=== PATIENT | female | born 1930 | race Caucasian/White ===

== ENCOUNTER 2016-06-02 12:50 | Inpatient (IN) | payer OTHER, MEDICAID ==
[~2016-06-02] VITALS: Ht 160 cm; Wt 61.7 kg
--- NOTE | 2016-06-02 13:10 | NUR ---
BIB PA FOR DANGER TO OTHERS AND SELF, AGGRESSIVE BEHAVIOR AT FACILITY. NOTED DEPRESSED, CRYING, SLIGHTLY AGITATED, COOPERATIVE. VSS. SEEN BY MD FOR EVAL. SAFETY AND COMFORT MEASURES PROVIDED. WILL MONITOR.
[2016-06-02 13:19] LABS: BASOPHILS % (AUTO) 0.4 % (0.0-2.0); EOSINOPHILS # (AUTO) 0.1 /CMM (0.0-0.7); EOSINOPHILS % (AUTO) 2.5 % (0.0-6.0); HEMATOCRIT 39 % (33-45); HEMOGLOBIN 13.5 g/dL (11.5-14.8); LYMPHOCYTES # (AUTO) 2.1 /CMM (0.8-4.8); LYMPHOCYTES % (AUTO) 39.6 % (20.0-44.0); MEAN CORPUSCULAR HEMOGLOBIN 29 PG (26.0-33.0); MEAN CORPUSCULAR HGB CONC 34 g/dl (31.0-36.0); MEAN CORPUSCULAR VOLUME 85 fL (82-100); MONOCYTES # (AUTO) 0.4 /CMM (0.1-1.30); MONOCYTES % (AUTO) 7.2 % (2.0-12.0); NEUTROPHILS # (AUTO) 2.7 /CMM (1.8-8.9); NEUTROPHILS % (AUTO) 50.3 % (43.0-81.0); PLATELET COUNT (AUTO) 187 /CMM (150-450); RDW COEFFICIENT OF VARIATION 12.2 (11.5-15.0); RED BLOOD CELL COUNT(AUTO) 4.63 MIL/uL (4.0-5.2); WHITE BLOOD COUNT (AUTO) 5.3 K/uL (4.3-11.0)
[2016-06-02 13:30] LABS: CALCIUM, SERUM 9.3 mg/dL (8.5-10.1); POTASSIUM 3.3 mmol/L (3.5-5.1)
[2016-06-02 13:35] LABS: ALBUMIN 3.5 g/dL (3.4-5.0); BILIRUBIN,DIRECT 0.1 mg/dL (0.0-0.2); BILIRUBIN,TOTAL 0.6 mg/dL (0.2-1.0); SALICYLATE 0.5 mg/dL (2.8-20.0); TOTAL PROTEIN, SERUM 6.3 g/dL (6.4-8.2)
--- NOTE | 2016-06-02 13:36 | NUR ---
CALLED ART FOR PSYCH EVALUATION
[2016-06-02] MEDS ORDERED: FURO20TA4 PO (13:41)
[2016-06-02] MEDS ORDERED: CALC-1074 PO (13:41)
[2016-06-02] MEDS ORDERED: ACET-868 PO (13:41)
[2016-06-02] MEDS ORDERED: POTA-10 PO (13:41)
[2016-06-02] MEDS ORDERED: ESCI10TA PO (13:41)
[2016-06-02] MEDS ORDERED: DOCU-170 PO (13:41)
[2016-06-02] MEDS ORDERED: MEMA14CA PO (13:41)
[2016-06-02] MEDS ORDERED: ASPI81TA2 PO (13:41)
[2016-06-02] MEDS ORDERED: PROP60CA2 PO (13:41)
[2016-06-02] MEDS ORDERED: LORA0.5T PO (13:41)
[2016-06-02] MEDS ORDERED: OLANZAPINE 5 MG TABLET PO ONE (14:00)
--- NOTE | 2016-06-02 14:00 | NUR ---
LEN JENNINGSW AT FOR EVAL.
[2016-06-02] MEDS ORDERED: OLANZAPINE 5 MG TABLET ONE (14:32)
--- NOTE | 2016-06-02 14:35 | NUR ---
REPORT GIVEN TO IVAN EPPERSON FOR GPS ROOM 217
--- NOTE | 2016-06-02 14:41 | NUR ---
PT MEDICATED ORDERED.
[2016-06-02 15:45] VITALS: BP 150/62
--- NOTE | 2016-06-02 15:45 | NUR ---
ADMISSION NOTES/ PATIENT ADMITTED FROM ER 86Y/OLD FEMALE 5150 HOLD ON DX. OF GD, PSYCHOSIS NOS, DEMENTIA, AND MAJOR DEPRESSION. ON FACE TO FACE ASSESSMENT PT A/O X1, CONFUSED, DELUSIONAL PT STATE "I AM WAITING MY DAUGHTER TO PICK ME UP". PATIENT AMBULATORY WITH UNSTEADY GAIT, NO RESPIRATORY DISTRESS, REFUSED SKIN ASSESSMENT, REFUSED SIGN PAPERWORK. V/S TAKEN BP-180/62, P-95, R-18, O2-93 ROOM AIR, T-98.2. BELONGING AND CONTRABAND CHECKED. PATIENT RIGHT HAND BOOK GIVEN, AND EXPLAINED TO. FAMILY AWARE. DR SANDOVAL, AND DR SHER AWARE OF NEW PATIENT, AND MEDICATION. CONTINUED MONITORING FOR SAFETY ALL THE TIME.
[2016-06-02] MEDS ORDERED: MAGNESIUM HYDROXIDE 30 ML UDC PO PRN (16:00)
[2016-06-02] MEDS ORDERED: MAG HYDROX/AL HYDROX/SIMETH 30 ML UDC PO PRN (16:00)
[2016-06-02] MEDS: ASPIRIN 81 MG TAB.CHEW PO SCH (18:19)
[2016-06-02] MEDS: POTASSIUM CHLORIDE 10 MEQ TABLET.SA PO SCH (19:00)
[2016-06-02] MEDS: DOCUSATE SODIUM 100 MG CAPSULE PO SCH (19:00)
[2016-06-02] MEDS: PROPRANOLOL LA 60 MG CAP.SA.24H PO SCH (19:04)
[2016-06-02 19:15] VITALS: BP 137/64
[2016-06-02 20:00] VITALS: BP 119/61
[2016-06-02 20:13] VITALS: BP 119/61
[2016-06-03 08:00] VITALS: BP 131/62
[2016-06-03 08:20] LABS: BILIRUBIN,TOTAL 0.5 mg/dL (0.2-1.0); CALCIUM, SERUM 8.7 mg/dL (8.5-10.1); CREATININE 0.9 mg/dL (0.6-1.3); POTASSIUM 3.7 mmol/L (3.5-5.1); TOTAL PROTEIN, SERUM 5.7 g/dL (6.4-8.2)
[2016-06-03 08:22] LABS: CHOLESTEROL 178 mg/dL (<200); HDL CHOLESTEROL 42 mg/dL (40-60); LDL 121 mg/dL (0-99); TRIGLYCERIDES 64 mg/dL (30-150)
[2016-06-03] MEDS: POTASSIUM CHLORIDE 10 MEQ TABLET.SA PO SCH (08:24)
[2016-06-03] MEDS: DOCUSATE SODIUM 100 MG CAPSULE PO SCH (08:24)
[2016-06-03] MEDS: ASPIRIN 81 MG TAB.CHEW PO SCH (08:24)
[2016-06-03] MEDS: CALCIUM CARB 250MG /VITAMIN D 1 UDTAB PO SCH (08:24)
[2016-06-03] MEDS: SERTRALINE HCL 25 MG TABLET PO SCH (08:24)
[2016-06-03] MEDS: FUROSEMIDE 20 MG TABLET PO SCH (08:24)
[2016-06-03] MEDS: MEMANTINE HCL 5 MG TABLET PO SCH ×2 (08:25→17:04)
[2016-06-03] MEDS: ACETAMINOPHEN 325 MG TABLET PO PRN (11:41)
--- NOTE | 2016-06-03 11:41 | NUR ---
[id number]: GAVE TYLENOL 650 MG PO DUE TO GENERALIZED PAIN 08/09 UPON PT REQUEST AND WILL CONTINUE TO MONITOR FOR EFFECTIVENESS OF MEDICATION.
[2016-06-03] MEDS: PROPRANOLOL LA 60 MG CAP.SA.24H PO SCH (11:42)
[2016-06-03] MEDS: LORAZEPAM 0.5 MG TABLET PO PRN (12:37)
--- NOTE | 2016-06-03 12:38 | NUR ---
[id number]: GAVE ATIVAN 0.5MG PO DUE TO SEVERE ANXIETY UPON PT REQUEST AND WILL CONTINUE TO MONITOR FOR EFFECTIVENESS OF MEDICATION
--- NOTE | 2016-06-03 13:38 | NUR ---
Initial discharge plan: Pt. resides at [facility] in [address] [id number] . BIJAN spoke with Mago from facility and pt. may be able to return when stabilized depending on her new condition and diagnosis. BIJAN will follow up with pt's son, Ash and daughter in law [phone], to confirm. BIJAN will follow up with MD and will help form safe and proper discharge. Addendum: 06/03/16 at 1356 by REY THAKKAR Bijan spoke with Ash taylor [phone] and Fide, daughter in law [phone] and they both agree for pt to return back to [facility]
--- NOTE | 2016-06-03 15:47 | NUR ---
UR update: faxed H&Ps, facesheet, med list, and [phone], to MICHAEL James from [employer] [phone] phone [phone]. Will follow up
[2016-06-03 16:00] VITALS: BP 122/62
--- NOTE | 2016-06-03 16:49 | NUR ---
[id number]: NOTIFIED DR. SHER ABOUT LAB RESULTS ON 06-04-15: NA= 146, CHLORIDE= 112, AST= 12, TOTAL PROTEIN= 5.7, ALBUMIN= 3.0. NO NEW ORDERS GIVEN AT THIS TIME.
[2016-06-03 17:18] LABS: APPEARANCE,URINE TURBID (CLEAR); BILIRUBIN,URINE NEGATIVE (NEGATIVE); BLOOD, URINE TRACE-INTA Ery/uL (NEGATIVE); COLOR,URINE YELLOW (YELLOW); KETONES,URINE NEGATIVE (NEGATIVE); LEUKOCYTE ESTERASE ,URINE 3+ (NEGATIVE); NITRITE, URINE POSITIVE (NEGATIVE); PH,URINE 5.5 (5.0-8.0); PROTEIN,URINE NEGATIVE (NEGATIVE); UGLUCOSE NEGATIVE (NEGATIVE); UROBILINOGEN,URINE 0.2 EU/dL (0.2)
[2016-06-03 17:25] LABS: ADD URINE CULTURE YES; BACTERIA,URINE Moderate /HPF (None Seen); RBC,URINE 0-2 /HPF (0-2); WBC,URINE 81-100 /HPF (0-3)
[2016-06-03 17:26] LABS: SQUAMOUS EPITHELIAL CELL,UR Few /HPF (None Seen)
[2016-06-03 20:10] VITALS: BP 140/66
[2016-06-03] MEDS ORDERED: OLANZAPINE 2.5 MG TABLET ONE (21:57)
[2016-06-03] MEDS ORDERED: OLANZAPINE 10 MG TABLET PO SCH (22:00)
--- NOTE | 2016-06-03 22:16 | NUR ---
GPS/RN NOTES SCHEDULED ZYPREXA 1.25MG (0.125 TAB) ORDERED. MEDICATION IN THE PYXIS SHOWED A 10MG TAB. SPORTS MEDICINE SPECIALIST OVER-RIDE ZYPREXA 2.5MG TAB TO BE CUT IN HALF FOR PRECISE ADMINISTRATION OF MEDICATION
[2016-06-04 08:00] VITALS: BP 126/62
[2016-06-04] MEDS: PROPRANOLOL LA 60 MG CAP.SA.24H PO SCH (08:11)
[2016-06-04] MEDS: POTASSIUM CHLORIDE 10 MEQ TABLET.SA PO SCH (08:12)
[2016-06-04] MEDS: ASPIRIN 81 MG TAB.CHEW PO SCH (08:12)
[2016-06-04] MEDS: CALCIUM CARB 250MG /VITAMIN D 1 UDTAB PO SCH (08:12)
[2016-06-04] MEDS: MEMANTINE HCL 5 MG TABLET PO SCH ×2 (08:12→17:38)
[2016-06-04] MEDS: FUROSEMIDE 20 MG TABLET PO SCH (08:13)
[2016-06-04] MEDS: SERTRALINE HCL 25 MG TABLET PO SCH (08:13)
[2016-06-04] MEDS: DOCUSATE SODIUM 100 MG CAPSULE PO SCH (08:14)
--- NOTE | 2016-06-04 10:39 | NUR ---
WOUND CARE CONSULT; PT PRESENTS WITH SLIGHT REDNESS UNDER LEFT BREAST, PRESENT ON ADMISSION. RECOMMENDATIONS MADE FOR SKIN PROTECTION AND DISCUSSED WITH NURSING STAFF. WILL SEE PRN. RIVERA IN AGREEMENT WITH PLAN OF CARE. Addendum: 06/04/16 at 1040 by JOSH GREEN WNDNU Amended: Links added.
[2016-06-04] MEDS ORDERED: Z GUARD REMEDY 2 OZ OINT TP PRN (11:00)
[2016-06-04] MEDS: Z GUARD REMEDY 2 OZ OINT TP SCH (11:00)
--- NOTE | 2016-06-04 11:00 | NUR ---
[id number]: NOTIFIED CLOTH CLASSER BEATRICE UR LEUKOCYTE ESTERASE= 3+, URINE RBC= 0-2, URINE APPEARANCE= TURBID, URINE PH=5.5, UR SPECIFIC GRAVITY= 1.020, URINE OCCULT BLOOD= TRACE-INTA, URINE NITRATE= POSITIVE, URINE UROBILINOGEN= 0.2, URINE WBC= 81-100. EVONNE BARRON WOULD REVIEW THE LAB RESULTS AND URINE CULTURE.
[2016-06-04] MEDS: LORAZEPAM 0.5 MG TABLET PO PRN (13:48)
--- NOTE | 2016-06-04 13:55 | NUR ---
GPS RN: PATIENT IS INCREASINGLY ANXIOUS, CRYING RESTLESS, HYPERVERBAL, WITH EPISODES OF, CONFUSED, HARD TO REDIRECT. ADMINISTERED Ativan 0.5MG PO PRN ORDERED. VS STABLE, CONTINUE TO MONITOR.
[2016-06-04] MEDS: ACETAMINOPHEN 325 MG TABLET PO PRN (15:55)
--- NOTE | 2016-06-04 15:56 | NUR ---
[id number]: ADMINISTERED TYLENOL 650 MG PO PRN DUE TO GENERALIZED PAIN 5/10 UPON PT REQUEST AND WILL CONTINUE TO MONITOR FOR EFFECTIVENESS OF MEDICATION.
[2016-06-04 16:00] VITALS: BP 129/53
[2016-06-04] MEDS: NITROFURANTOIN MACROCRYSTAL 50 MG CAPSULE PO SCH ×2 (17:38→23:19)
--- NOTE | 2016-06-04 19:17 | NUR ---
GPS RN NOTE, RECEIVED PATIENT AWAKE AND IN BED, NO S/S OR COMPLAINTS OF PAIN AT THIS TIME. PATIENT IS DISPLAYING NO S/S OF APPARENT DISTRESS AT THIS TIME. PATIENT BREATHING IS UNLABORED WITH EQUAL RISE AND FALL OF THE CHEST. PATIENT IS ALERT AND ORIENTED X 1 ON ROOM AIR WITH A SPO2 95%. PATIENT COMPLIANT WITH MEDICATIONS, ANXIOUS, HYPERVERBAL, DISORGANIZED, CONFUSED AT TIMES, AND NEEDS REORIENTATION. PATIENT DENIES SUICIDE AND HOMICIDAL IDEATIONS AT THIS TIME. PATIENT ASSISTED WITH TURNING AND REPOSITIONING Q2HR AND PRN FOR COMFORT AND CIRCULATION. PATIENT HAS NO NEEDS AT THIS TIME. PATIENT EDUCATED ON THE USE OF THE CALL BASS. PATIENT BED SIDE RAILS UP X2 FOR SAFETY, BED IS LOCKED AND LOW WILL CONTINUE TO MONITOR AND MAINTAIN SAFETY.
[2016-06-04 20:45] VITALS: BP 135/72
[2016-06-04] MEDS: OLANZAPINE 10 MG TABLET PO SCH (21:16)
[2016-06-04] MEDS: TEMAZEPAM 7.5 MG CAPSULE PO PRN (21:16)
--- NOTE | 2016-06-04 21:16 | NUR ---
GPS RN NOTE, PATIENT HAS A COMPLAINT OF NOT BEING ABLE TO SLEEP AND WOULD LIKE A SLEEPING AID AT THIS TIME. PATIENT VITAL SIGNS ARE STABLE. GAVE RESTORIL 7.5MG PO HS ORDERED. WILL REASSESS FOR INSOMNIA AND I WILL CONTINUE TO MONITOR THIS PATIENT.
[2016-06-05] MEDS: NITROFURANTOIN MACROCRYSTAL 50 MG CAPSULE PO SCH ×3 (05:22→17:10)
[2016-06-05 07:08] LABS: BASOPHILS % (AUTO) 0.6 % (0.0-2.0); EOSINOPHILS # (AUTO) 0.2 /CMM (0.0-0.7); EOSINOPHILS % (AUTO) 5.4 % (0.0-6.0); HEMATOCRIT 38 % (33-45); HEMOGLOBIN 12.9 g/dL (11.5-14.8); LYMPHOCYTES # (AUTO) 1.9 /CMM (0.8-4.8); MEAN CORPUSCULAR HEMOGLOBIN 29 PG (26.0-33.0); MEAN CORPUSCULAR HGB CONC 34 g/dl (31.0-36.0); MEAN CORPUSCULAR VOLUME 86 fL (82-100); MONOCYTES # (AUTO) 0.4 /CMM (0.1-1.30); PLATELET COUNT (AUTO) 177 /CMM (150-450); RDW COEFFICIENT OF VARIATION 13.2 (11.5-15.0); RED BLOOD CELL COUNT(AUTO) 4.49 MIL/uL (4.0-5.2); WHITE BLOOD COUNT (AUTO) 4.6 K/uL (4.3-11.0)
[2016-06-05 07:40] LABS: CALCIUM, SERUM 8.7 mg/dL (8.5-10.1); CREATININE 0.9 mg/dL (0.6-1.3); MAGNESIUM 1.8 mg/dL (1.8-2.4); PHOSPHORUS 3.8 mg/dL (2.5-4.9); POTASSIUM 3.8 mmol/L (3.5-5.1)
[2016-06-05 08:00] VITALS: BP 115/61
[2016-06-05] MEDS: PROPRANOLOL LA 60 MG CAP.SA.24H PO SCH (09:00)
[2016-06-05] MEDS: CALCIUM CARB 250MG /VITAMIN D 1 UDTAB PO SCH (09:08)
[2016-06-05] MEDS: SERTRALINE HCL 25 MG TABLET PO SCH (09:08)
[2016-06-05] MEDS: ASPIRIN 81 MG TAB.CHEW PO SCH (09:08)
[2016-06-05] MEDS: DOCUSATE SODIUM 100 MG CAPSULE PO SCH (09:08)
[2016-06-05] MEDS: POTASSIUM CHLORIDE 10 MEQ TABLET.SA PO SCH (09:08)
[2016-06-05] MEDS: MEMANTINE HCL 5 MG TABLET PO SCH ×2 (09:08→17:10)
[2016-06-05] MEDS: FUROSEMIDE 20 MG TABLET PO SCH (09:08)
[2016-06-05] MEDS: Z GUARD REMEDY 2 OZ OINT TP SCH (09:31)
--- NOTE | 2016-06-05 14:41 | NUR ---
UR update: BIJAN received a call from MICHAEL James from [facility] [phone] phone [phone]. [email or web address] Addendum: 06/05/16 at 1443 by REY THAKKAR and the patient is authorized until 06/06/16. Will follow up on Thursday.
[2016-06-05 16:00] VITALS: BP 120/77
[2016-06-05 20:00] VITALS: BP 154/96
[2016-06-05] MEDS: OLANZAPINE 10 MG TABLET PO SCH (21:32)
[2016-06-06] MEDS: NITROFURANTOIN MACROCRYSTAL 50 MG CAPSULE PO SCH ×5 (00:39→23:48)
[2016-06-06] MEDS: TEMAZEPAM 7.5 MG CAPSULE PO PRN ×2 (00:52→23:53)
[2016-06-06 08:00] VITALS: BP 126/62
[2016-06-06] MEDS: POTASSIUM CHLORIDE 10 MEQ TABLET.SA PO SCH (08:19)
[2016-06-06] MEDS: FUROSEMIDE 20 MG TABLET PO SCH (08:20)
[2016-06-06] MEDS: ASPIRIN 81 MG TAB.CHEW PO SCH (08:20)
[2016-06-06] MEDS: DOCUSATE SODIUM 100 MG CAPSULE PO SCH (08:20)
[2016-06-06] MEDS: SERTRALINE HCL 25 MG TABLET PO SCH (08:20)
[2016-06-06] MEDS: MEMANTINE HCL 5 MG TABLET PO SCH ×2 (08:20→17:05)
[2016-06-06] MEDS: CALCIUM CARB 250MG /VITAMIN D 1 UDTAB PO SCH (08:20)
[2016-06-06] MEDS: PROPRANOLOL LA 60 MG CAP.SA.24H PO SCH (08:29)
[2016-06-06] MEDS: Z GUARD REMEDY 2 OZ OINT TP SCH (08:29)
[2016-06-06 16:00] VITALS: BP 120/55
--- NOTE | 2016-06-06 16:27 | NUR ---
UR update: BIJAN faxed updated clinicals and med list to MICHAEL James from [facility] [phone] phone [phone]. Auth # [id number]. Will follow up
--- NOTE | 2016-06-06 19:35 | NUR ---
GPS RN NOTES ON BED A/O X1-2,CONFUSED,CALM,NOTED WORD SALAD WHEN CONVERSING WITH HER.NEEDS REORIENTATION,SITTER AT BEDSIDE FOR SAFETY.WILL CONTINUE TO BEHAVIOR.
[2016-06-06 20:00] VITALS: BP 153/69
[2016-06-06] MEDS ORDERED: OLANZAPINE 2.5 MG TABLET PO SCH (22:00)
--- NOTE | 2016-06-06 23:55 | NUR ---
GPS RN NOTES STILL AWAKE,DUE PO ABX GIVEN WITH APPLE SAUCE,TAKEN WELL ALONG WITH RESTORIL 7.5MG PO FOR INSOMNIA.WILL MONITOR HOURS OF SLEEP.
--- NOTE | 2016-06-07 05:20 | NUR ---
GPS RN NOTES APPEARS ANXIOUS,TALKING TO SELF,MEDICATED WITH ATIVAN 0.5MG PO FOR ANXIETY PRN ORDERED.
[2016-06-07] MEDS: LORAZEPAM 0.5 MG TABLET PO PRN (05:21)
[2016-06-07] MEDS: NITROFURANTOIN MACROCRYSTAL 50 MG CAPSULE PO SCH ×4 (05:22→23:25)
--- NOTE | 2016-06-07 05:47 | NUR ---
GPS RN NOTES REPORTED BY HUDSON,PATIENT SLEEP ONLY FOR 5 MINUTES,SHE WAS JUST AWAKE,TALKING TO SELF
[2016-06-07 08:28] VITALS: BP 157/80
[2016-06-07] MEDS: POTASSIUM CHLORIDE 10 MEQ TABLET.SA PO SCH (08:52)
[2016-06-07] MEDS: MEMANTINE HCL 5 MG TABLET PO SCH ×2 (08:52→16:41)
[2016-06-07] MEDS: ASPIRIN 81 MG TAB.CHEW PO SCH (08:52)
[2016-06-07] MEDS: FUROSEMIDE 20 MG TABLET PO SCH (08:52)
[2016-06-07] MEDS: CALCIUM CARB 250MG /VITAMIN D 1 UDTAB PO SCH (08:53)
[2016-06-07] MEDS: DOCUSATE SODIUM 100 MG CAPSULE PO SCH (08:53)
[2016-06-07] MEDS: PROPRANOLOL LA 60 MG CAP.SA.24H PO SCH (08:54)
[2016-06-07] MEDS: Z GUARD REMEDY 2 OZ OINT TP SCH (08:54)
[2016-06-07] MEDS ORDERED: OLANZAPINE 2.5 MG TABLET PO PRN ×2 (11:00)
[2016-06-07 16:01] VITALS: BP 122/71
[2016-06-07 20:00] VITALS: BP 103/59
[2016-06-07] MEDS: OLANZAPINE 2.5 MG TABLET PO SCH (21:06)
[2016-06-07] MEDS ORDERED: SERTRALINE HCL 25 MG TABLET PO SCH (22:00)
[2016-06-07] MEDS: TEMAZEPAM 7.5 MG CAPSULE PO PRN (23:26)
[2016-06-08] MEDS: NITROFURANTOIN MACROCRYSTAL 50 MG CAPSULE PO SCH ×3 (05:23→16:51)
[2016-06-08 08:00] VITALS: BP 132/52
[2016-06-08] MEDS: DOCUSATE SODIUM 100 MG CAPSULE PO SCH (09:11)
[2016-06-08] MEDS: CALCIUM CARB 250MG /VITAMIN D 1 UDTAB PO SCH (09:11)
[2016-06-08] MEDS: ASPIRIN 81 MG TAB.CHEW PO SCH (09:11)
[2016-06-08] MEDS: MEMANTINE HCL 5 MG TABLET PO SCH ×2 (09:11→16:51)
[2016-06-08] MEDS: FUROSEMIDE 20 MG TABLET PO SCH (09:12)
[2016-06-08] MEDS: POTASSIUM CHLORIDE 10 MEQ TABLET.SA PO SCH (09:12)
[2016-06-08] MEDS: PROPRANOLOL LA 60 MG CAP.SA.24H PO SCH (09:12)
[2016-06-08] MEDS: Z GUARD REMEDY 2 OZ OINT TP SCH (09:13)
[2016-06-08] MEDS: SERTRALINE HCL 25 MG TABLET PO SCH (13:10)
[2016-06-08 15:51] VITALS: BP 103/52
[2016-06-08 20:00] VITALS: BP 106/64
[2016-06-08] MEDS: OLANZAPINE 2.5 MG TABLET PO SCH (21:40)
[2016-06-08] MEDS: TEMAZEPAM 7.5 MG CAPSULE PO PRN (21:40)
--- NOTE | 2016-06-09 00:34 | NUR ---
Pt has been hyperverbal, quite vague, loud, delusional, repetitive, & with poor insight. She needed lots of promptings to take her noc po meds last night.
[2016-06-09] MEDS: LORAZEPAM 0.5 MG TABLET PO PRN ×2 (03:11→15:47)
--- NOTE | 2016-06-09 03:11 | NUR ---
GPS RN NOTE, PATIENT HAS A COMPLAINT OF FEELING ANXIOUS AND WOULD LIKE MEDICATION AT THIS TIME. PATIENT VITAL SIGNS ARE STABLE. GAVE ATIVAN 0.5MG PO Q6HR PRN ORDERED. WILL REASSESS FOR ANXIETY AND I WILL CONTINUE TO MONITOR THIS PATIENT.
[2016-06-09] MEDS: NITROFURANTOIN MACROCRYSTAL 50 MG CAPSULE PO SCH ×4 (06:00→18:02)
[2016-06-09] MEDS: ASPIRIN 81 MG TAB.CHEW PO SCH (07:51)
[2016-06-09] MEDS: POTASSIUM CHLORIDE 10 MEQ TABLET.SA PO SCH (07:51)
[2016-06-09] MEDS: DOCUSATE SODIUM 100 MG CAPSULE PO SCH (07:51)
[2016-06-09] MEDS: CALCIUM CARB 250MG /VITAMIN D 1 UDTAB PO SCH (07:51)
[2016-06-09] MEDS: FUROSEMIDE 20 MG TABLET PO SCH (07:51)
[2016-06-09] MEDS: MEMANTINE HCL 5 MG TABLET PO SCH ×2 (07:52→16:52)
[2016-06-09 08:00] VITALS: BP 122/50
[2016-06-09] MEDS: Z GUARD REMEDY 2 OZ OINT TP SCH (08:30)
[2016-06-09] MEDS: PROPRANOLOL LA 60 MG CAP.SA.24H PO SCH (08:38)
--- NOTE | 2016-06-09 11:52 | NUR ---
UR update: BIJAN faxed updated clinicals and med list to MICHAEL aJmes from [employer] [phone] phone [phone]. We are authorized for another day, with a discharge tomorrow. Auth # [id number].
--- NOTE | 2016-06-09 11:54 | NUR ---
BIJAN spoke with Jacquelyn from [facility] in [address] [address] and she requested paperwork to be faxed so they can review. BIJAN faxed requested paperwork. Will follow up
[2016-06-09] MEDS: SERTRALINE HCL 25 MG TABLET PO SCH (12:53)
--- NOTE | 2016-06-09 15:47 | NUR ---
GPS/RN PATIENT ANXIOUS, AGITATED, STRIKING OUT AT STAFF, ADMINISTERED ATIVAN PO ORDERED, WILL CONTINUE TO MONITOR
[2016-06-09 16:00] VITALS: BP 92/69
[2016-06-09 19:47] VITALS: BP 112/66
[2016-06-09] MEDS: TEMAZEPAM 7.5 MG CAPSULE PO PRN (21:31)
[2016-06-09] MEDS: OLANZAPINE 2.5 MG TABLET PO SCH (21:31)
[2016-06-10] MEDS: NITROFURANTOIN MACROCRYSTAL 50 MG CAPSULE PO SCH ×5 (00:16→23:55)
[2016-06-10 08:00] VITALS: BP 121/62
[2016-06-10] MEDS: CALCIUM CARB 250MG /VITAMIN D 1 UDTAB PO SCH (08:29)
[2016-06-10] MEDS: PROPRANOLOL LA 60 MG CAP.SA.24H PO SCH (08:29)
[2016-06-10] MEDS: POTASSIUM CHLORIDE 10 MEQ TABLET.SA PO SCH (08:29)
[2016-06-10] MEDS: MEMANTINE HCL 5 MG TABLET PO SCH ×2 (08:29→17:21)
[2016-06-10] MEDS: FUROSEMIDE 20 MG TABLET PO SCH (08:29)
[2016-06-10] MEDS: DOCUSATE SODIUM 100 MG CAPSULE PO SCH (08:29)
[2016-06-10] MEDS: ASPIRIN 81 MG TAB.CHEW PO SCH (08:29)
[2016-06-10] MEDS: Z GUARD REMEDY 2 OZ OINT TP SCH (08:55)
[2016-06-10] MEDS: SERTRALINE HCL 25 MG TABLET PO SCH (12:08)
--- NOTE | 2016-06-10 12:55 | NUR ---
BIJAN met with pt's nurse from [facility] in [address] [address] who came to assess the patient, and she determined that pt is not appropriate for their level of care at this time. BIJAN spoke with pt's son, Ash [phone] who also states per doctor's recommendations, pt. needs a SNF at this time. BIJAN will follow up
--- NOTE | 2016-06-10 12:57 | NUR ---
UR update: BIJAN faxed updated clinicals and med list to MICHAEL James from [employer] [phone] phone [phone]. She was notified that pt. will need a SNF as facility is not able to accept the patient back as she needs more care. Erika authorized the patient until the 12 of June so BIJAN can find an appropriate facility. Auth # [id number].
--- NOTE | 2016-06-10 12:58 | NUR ---
BIJAN will fax PT evaluation to [facility] [phone] fax [phone] when it is available. An order for a PT evaluation has been placed since yesterday. Addendum: 06/10/16 at 1447 by REY THAKKAR BIJAN faxed paperwork and will follow up tomorrow.
--- NOTE | 2016-06-10 14:46 | NUR ---
BIJAN faxed a referral to [facility] [address] [facility] [address] . Will follow up .
[2016-06-10 15:39] VITALS: BP 118/60
--- NOTE | 2016-06-10 15:43 | NUR ---
RN-CO: SEEN BY DR JEFF.
[2016-06-10] MEDS: LORAZEPAM 0.5 MG TABLET PO PRN (17:26)
--- NOTE | 2016-06-10 17:45 | NUR ---
GPS RN NOTE: PATIENT RESTLESS BANGING ON THE TABLE , CRYING ATIVAN 0.5 MG PO PRN GIVEN PER DR SANDOVAL ORDERS WILL CONTINUE MONITORING
[2016-06-10 20:31] VITALS: BP 116/61
[2016-06-10] MEDS: TEMAZEPAM 7.5 MG CAPSULE PO PRN (22:00)
[2016-06-10] MEDS ORDERED: OLANZAPINE 2.5 MG TABLET PO SCH (22:00)
[2016-06-11] MEDS: LORAZEPAM 0.5 MG TABLET PO PRN ×3 (02:09→23:39)
[2016-06-11] MEDS: ACETAMINOPHEN 325 MG TABLET PO PRN ×2 (02:10→21:33)
[2016-06-11] MEDS: NITROFURANTOIN MACROCRYSTAL 50 MG CAPSULE PO SCH ×2 (06:03→14:03)
[2016-06-11 08:00] VITALS: BP 106/50
[2016-06-11] MEDS: CALCIUM CARB 250MG /VITAMIN D 1 UDTAB PO SCH (08:53)
[2016-06-11] MEDS: POTASSIUM CHLORIDE 10 MEQ TABLET.SA PO SCH (08:53)
[2016-06-11] MEDS: ASPIRIN 81 MG TAB.CHEW PO SCH (08:53)
[2016-06-11] MEDS: MEMANTINE HCL 5 MG TABLET PO SCH ×3 (08:53→17:00)
[2016-06-11] MEDS: DOCUSATE SODIUM 100 MG CAPSULE PO SCH (08:53)
[2016-06-11] MEDS: Z GUARD REMEDY 2 OZ OINT TP SCH (08:54)
[2016-06-11] MEDS: PROPRANOLOL LA 60 MG CAP.SA.24H PO SCH (08:55)
[2016-06-11] MEDS: FUROSEMIDE 20 MG TABLET PO SCH (08:55)
[2016-06-11] MEDS ORDERED: OLANZAPINE 2.5 MG TABLET PO PRN (10:30)
[2016-06-11 16:00] VITALS: BP 108/55
--- NOTE | 2016-06-11 16:20 | NUR ---
ADMINISTERED ATIVAN 0.5 MG PO PRN FOR ANXIETY, COMBATIVE HITTING, CRYING SAME TIME, V/S STABLE BP-110/60, P-77, CONTINUED MONITORING. Addendum: 06/11/16 at 1728 by DYAN CLEMENT LVN ABOVE NOTES MENTIONED ADMINISTERED ATIVAN , BUT SPIT OUT MEDICATION, AND UNABLE TO ADMINISTERED, AWARE OF.
[2016-06-11] MEDS: SERTRALINE HCL 25 MG TABLET PO SCH ×2 (16:21→17:00)
--- NOTE | 2016-06-11 17:20 | NUR ---
PATIENT VERY ANXIOUS, YELLING SCREAMING, PARANOID, CRYING , VERY LOUD, HARD TO FOLLOW DIRECTION, UNDRESS SELF. REDIRECT PATIENT, SAFETY PRECAUTION MAINTAINED , BUT PATIENT STILL SAME, COMBATIVE, DELUSIONAL. CALLED DR SANDOVAL, AND GET ORDER, ZYPREXA 2.5 MG/ML IM X1 NOW, ORDER TAKEN, AND CARRIED OUT.
[2016-06-11] MEDS ORDERED: OLANZAPINE 10 MG VIAL IM ONE (17:30)
--- NOTE | 2016-06-11 17:30 | NUR ---
ADMINISTERED ZYPREXA 2.5 MG/ML IM RIGHT UPPER DELTOID AREA, PRESCRIBED BY MD, PATIENT REFUSED V/S TO BE TAKE, CONTINUED MONITORING CLOSELY FOR SAFETY.
[2016-06-11 21:20] LABS: ALBUMIN 3.4 g/dL (3.4-5.0); BILIRUBIN,TOTAL 0.6 mg/dL (0.2-1.0); CALCIUM, SERUM 10.1 mg/dL (8.5-10.1); CREATININE 1.1 mg/dL (0.6-1.3); MAGNESIUM 1.9 mg/dL (1.8-2.4); POTASSIUM 3.5 mmol/L (3.5-5.1); TOTAL PROTEIN, SERUM 6.4 g/dL (6.4-8.2)
[2016-06-11 21:28] VITALS: BP 110/36
[2016-06-11] MEDS: TEMAZEPAM 7.5 MG CAPSULE PO PRN (21:32)
[2016-06-11 21:35] LABS: BASOPHILS % (AUTO) 0.4 % (0.0-2.0); EOSINOPHILS # (AUTO) 0.7 /CMM (0.0-0.7); EOSINOPHILS % (AUTO) 10.6 % (0.0-6.0); HEMATOCRIT 43 % (33-45); HEMOGLOBIN 14.5 g/dL (11.5-14.8); LYMPHOCYTES % (AUTO) 29.5 % (20.0-44.0); MEAN CORPUSCULAR HEMOGLOBIN 28 PG (26.0-33.0); MEAN CORPUSCULAR HGB CONC 34 g/dl (31.0-36.0); MEAN CORPUSCULAR VOLUME 85 fL (82-100); MONOCYTES # (AUTO) 0.6 /CMM (0.1-1.30); MONOCYTES % (AUTO) 8.7 % (2.0-12.0); NEUTROPHILS # (AUTO) 3.5 /CMM (1.8-8.9); NEUTROPHILS % (AUTO) 50.8 % (43.0-81.0); PLATELET COUNT (AUTO) 231 /CMM (150-450); RDW COEFFICIENT OF VARIATION 13.1 (11.5-15.0); WHITE BLOOD COUNT (AUTO) 6.9 K/uL (4.3-11.0)
--- NOTE | 2016-06-11 23:50 | NUR ---
GPS RN NOTE: PATIENT WOKE UP CRYING, SCREAMING AND TALKING TO SELF. ATTEMPTED TO GIVE ATIVAN 0.5MG AND ENDED UP SPITTING MEDICATION, REDIRECT THE PATIENT, QUIET ENVIRONMENT PROVIDED, ON 1:1 FOR SAFETY, WILL CONTINUE TO MONITOR
[2016-06-12 07:51] VITALS: BP 100/52
--- NOTE | 2016-06-12 08:26 | NUR ---
RN:CO: Patient is asleep at this time, respiration even and unlabored. Dr Will via phone ordered to discharge patient to medical floor. Dr Will stated that she reviewed the current medications and laboratory result of the patient and discussed the paln with Dr Alexandra Bravo
[2016-06-12 09:00] VITALS: BP 100/52
[2016-06-12] MEDS: FUROSEMIDE 20 MG TABLET PO SCH (09:00)
[2016-06-12] MEDS: PROPRANOLOL LA 60 MG CAP.SA.24H PO SCH (09:00)
[2016-06-12] MEDS: Z GUARD REMEDY 2 OZ OINT TP SCH (09:00)
[2016-06-12] MEDS: POTASSIUM CHLORIDE 10 MEQ TABLET.SA PO SCH (09:00)
[2016-06-12] MEDS: ASPIRIN 81 MG TAB.CHEW PO SCH (09:00)
[2016-06-12] MEDS: CALCIUM CARB 250MG /VITAMIN D 1 UDTAB PO SCH (09:00)
[2016-06-12] MEDS: MEMANTINE HCL 5 MG TABLET PO SCH (09:00)
[2016-06-12] MEDS: DOCUSATE SODIUM 100 MG CAPSULE PO SCH (09:00)
--- NOTE | 2016-06-12 10:26 | NUR ---
RN-CO: Notified Dr Morris regarding Dr Will"s recommendation to discharge patient to medical floor for further evaluation. She ordered to discharge patient to medical floor and continue with 1:1 sitter. RN station supervisor was notified and gave a room . (320 B)
--- NOTE | 2016-06-12 11:21 | NUR ---
BIJAN faxed a referral to [facility] [address], [place] [address] . fax [phone]. Facility is willing to accept but needs authorization from the insurance.
--- NOTE | 2016-06-12 11:24 | NUR ---
RN-CO: Tried to notify the son Ash but the tel number in the face sheet is wrong. Called Ruby daughter in law [phone] no answer and left message. Tried to call in her cell phone at [phone] left a voice mail.
--- NOTE | 2016-06-12 11:26 | NUR ---
RN-CO: Asked Dr Morris if she wants to continue medication, Dr Morris stated she will make another set of orders in the medical floor.
--- NOTE | 2016-06-12 11:37 | NUR ---
Pt's family hired a placement agent, Altaf Pettit from [facility] [employer] [phone] who is working with SW to find an appropriate placement for the patient.
--- NOTE | 2016-06-12 11:39 | NUR ---
RN-CO: Ash taylor, called back and made aware of the transfer to medical floor room 320 B.
--- NOTE | 2016-06-12 11:52 | NUR ---
UR update: BIJAN left a voicemail for MICHAEL James from [employer] [phone] phone [phone] with information about pt's discharge to the medical floor. Auth # [id number].
[2016-06-12] MEDS ORDERED: IV NS 0.9% 1,000 ML BAG IV ONE (12:00)
--- NOTE | 2016-06-12 12:28 | NUR ---
RN-CO: Patient refused photo taken.
[2016-06-12] MEDS ORDERED: IV NS 0.9% 1,000 ML IV ONE (12:30)
--- NOTE | 2016-06-12 12:47 | NUR ---
RN-CO: Dr. Will seen and examined patient with order to discontinue hold, noted and carried out.
--- NOTE | 2016-06-12 13:10 | NUR ---
GPS RN: IN AND OUT CATH DONE, URINE OBTAINED, LAB NOTIFIED TO RECRUITER. PATIENT TOLERATED WELL.
--- NOTE | 2016-06-12 13:59 | NUR ---
GPS RN: UNABLE TO START PERIPHERAL IV, TRIED X3. MD NOTIFIED, RECEIVING NURSE ON MED SURG FLOOR, NOTIFIED.
--- NOTE | 2016-06-12 14:36 | NUR ---
GPS FABRICATION OPERATOR NOTES: PATIENT'S HOLD DISCONTINUED AND PATIENT DISCHARGED TO THE MED SURG FLOOR FOR FURTHER EVALUATION, PER DR. SANDOVAL'S ORDER. PATIENT IS NOT IN ANY APPARENT DISTRESS AT THE TIME OF DISCHARGE, A/O X1-2, VSS, AROUSABLE ON STIMULI, ALL BELONGINGS RETURNED TO THE PATIENT. PATIENT REFUSED PHOTOS. MED RECONCILIATION DONE AND THE COPY ATTACHED WITH THE DISCHARGE PAPERWORK. REPORT GIVEN TO ISADORA EPPERSON. PATIENT TRANSFERRED TO THE MED SURG FLOOR AT THIS TIME.
[2016-06-12 15:00] LABS: APPEARANCE,URINE CLEAR (CLEAR); BILIRUBIN,URINE NEGATIVE (NEGATIVE); BLOOD, URINE NEGATIVE Ery/uL (NEGATIVE); COLOR,URINE DARK YELLO (YELLOW); KETONES,URINE TRACE (NEGATIVE); LEUKOCYTE ESTERASE ,URINE NEGATIVE (NEGATIVE); NITRITE, URINE NEGATIVE (NEGATIVE); PH,URINE 5.5 (5.0-8.0); PROTEIN,URINE NEGATIVE (NEGATIVE); UGLUCOSE NEGATIVE (NEGATIVE); UROBILINOGEN,URINE 0.2 EU/dL (0.2)
[2016-06-12] MEDS ORDERED: SERT25TA PO (15:05)
[2016-06-12] MEDS ORDERED: MAG30ORA PO (15:05)
[2016-06-12] MEDS ORDERED: MAGN400O6 PO (15:05)
[2016-06-12] MEDS ORDERED: OLAN2.5T3 PO ×2 (15:05)
[2016-06-12] MEDS ORDERED: MEMA5TAB PO (15:05)
[2016-06-12] MEDS ORDERED: TEMA7.5C12 PO (15:05)
[2016-06-12] MEDS ORDERED: CALC-7 PO (15:05)
[2016-06-12] MEDS ORDERED: LORA0.5T PO (15:05)
[2016-06-12] MEDS ORDERED: ALLA266C2 TP ×2 (15:05)
[2016-06-12 15:30] LABS: ADD URINE CULTURE NO; BACTERIA,URINE RARE /HPF (None Seen); RBC,URINE 0-2 /HPF (0-2); SQUAMOUS EPITHELIAL CELL,UR FEW /HPF (None Seen); URINE AMORPHOUS URATE Few /HPF (None Seen); WBC,URINE 0-2 /HPF (0-3)
== END 2016-06-12 14:36 | disposition short-term general hospital (02) | DRG 885 ==
LOC: ER 12:55 → GPS 15:46
PROVIDERS: ADMIT Internal Medicine; ATTEND Psychiatry & Neurology Psychosomatic Medicine
DX: F32.3 Major depressive disorder, single episode, severe with psychotic features (principal); F02.80 Dementia in other diseases classified elsewhere, unspecified severity, without behavioral disturbance, psychotic disturbance, mood disturbance, and anxiety; G93.40 Encephalopathy, unspecified; E87.0 Hyperosmolality and hypernatremia; N39.0 Urinary tract infection, site not specified; F29 Unspecified psychosis not due to a substance or known physiological condition; G30.9 Alzheimer's disease, unspecified; I25.10 Atherosclerotic heart disease of native coronary artery without angina pectoris; I10 Essential (primary) hypertension; B96.20 Unspecified Escherichia coli [E. coli] as the cause of diseases classified elsewhere; F01.50 Vascular dementia, unspecified severity, without behavioral disturbance, psychotic disturbance, mood disturbance, and anxiety; Z87.440 Personal history of urinary (tract) infections; E87.6 Hypokalemia; R73.9 Hyperglycemia, unspecified; E86.0 Dehydration
CPT/HCPCS: 36415; 70450-TC; 71010-TC; 80048-TC; 80053-TC; 80061-TC; 80076-TC; 81000-TC; 83735-TC; 84100-TC; 85025-TC; 87040-TC; 87086-TC; 87186-TC; 97001-TC; 97116-TC; 97530-TC; A4606; A6402; G0480; G6039-TC; J3490; Z7610

== ENCOUNTER 2016-06-12 14:51 | Inpatient (IN) | payer BC, MEDICAID ==
[~2016-06-12] VITALS: Ht 160 cm; Wt 61.7 kg
[~2016-06-12 14:51] MED LIST: ACET-868 PO; ASPI81TA2 PO; CALC-1074 PO; DOCU-170 PO; FURO20TA4 PO; MEMA14CA PO; POTA-10 PO; PROP60CA2 PO
[2016-06-12] MEDS ORDERED: OLAN2.5T3 PO ×2 (15:05)
[2016-06-12] MEDS ORDERED: MEMA5TAB PO (15:05)
[2016-06-12] MEDS ORDERED: CALC-7 PO (15:05)
[2016-06-12] MEDS ORDERED: ALLA266C2 TP ×2 (15:05)
[2016-06-12] MEDS ORDERED: SERT25TA PO (15:05)
[2016-06-12] MEDS ORDERED: TEMA7.5C12 PO (15:05)
[2016-06-12] MEDS ORDERED: LORA0.5T PO (15:05)
[2016-06-12] MEDS ORDERED: MAGN400O6 PO (15:05)
[2016-06-12] MEDS ORDERED: MAG30ORA PO (15:05)
[2016-06-12 16:00] VITALS: BP 113/51
--- NOTE | 2016-06-12 16:15 | NUR ---
RN ADMITTING NOTES RECEIVED REPORT FROM MARC AT THE GPS UNIT. PATIENT DOESN'T HAVE IV ACCESS. TWO NURSES TRIED TO START AN IV AT THE GPS UNSUCCESSFULLY . PATIENT IS SLEEPY AND AROUSAL TO DEEP TOUCH. WILL CONTINUE TO MONITOR AND ASSESS PATIENT
[2016-06-12] MEDS ORDERED: IV NS 0.9% 1,000 ML BAG IV PRN (17:30)
--- NOTE | 2016-06-12 17:30 | NUR ---
RN NOTES UNABLE TO COMPLETE ADMISSION INFORMATION DUE TO PATIENT UNABLE TO DELIVER INFORMATION AND NO FAMILY AT BEDSIDE.
[2016-06-12] MEDS ORDERED: IV NS 0.9% 1,000 ML IV PRN ×2 (18:00→19:06)
--- NOTE | 2016-06-12 18:30 | NUR ---
RN NOTES IV SITE TWO NURSES TRIED TWICE TO START AN IV SITE BUT UNSUCCESSFULLY. CHARGE NURSE MADE AWARE. WILL ENDORSE TO POCKET MARKER NURSE
[2016-06-12] MEDS ORDERED: ONDANSETRON HCL/PF 4 MG/2 ML VIAL IVP PRN (19:30)
[2016-06-12] MEDS ORDERED: MAGNESIUM HYDROXIDE 30 ML UDC PO PRN (19:30)
[2016-06-12] MEDS ORDERED: ACETAMINOPHEN 325 MG TABLET PO PRN (19:30)
[2016-06-12] MEDS ORDERED: Z GUARD REMEDY 2 OZ OINT TP PRN (19:30)
[2016-06-12] MEDS ORDERED: MAG HYDROX/AL HYDROX/SIMETH 30 ML UDC PO PRN (19:30)
--- NOTE | 2016-06-12 19:30 | NUR ---
MS RN NOTES RECEIVED PT IN BED, AWAKE, WITH EPISODES OF CONFUSION. VERBALLY RESPONSIVE , TRYING TO GET OUT OF THE BED. NO DISTRESS, NO SOB NOTED. SAFETY PRECAUTIONS OBSERVED, STRAIGHTENING MACHINE FEEDER AT BEDSIDE. CALL LIGHT WITHIN REACH. DENIES ANY PAIN OR DISCOMFORT AT THIS TIME. CALL LIGHT WITHIN REACH. WILL CONTINUE TO MONITOR.
--- NOTE | 2016-06-12 19:35 | NUR ---
RN CLOSING NOTES PATIENT STABLE, ABUSABLE TO TOUCH. REPORT GAVE TO ADMINISTRATIVE RESOURCES ASSOCIATE NURSE. ADVISED ADMINISTRATIVE RESOURCES ASSOCIATE NURSE TO CONTACT ER OR ICU NURSE TO START AN IV. NS @ 100ML/HR NEEDS TO BE STARTED AFTER AN IV SITE ESTABLISHED
[2016-06-12 20:00] VITALS: BP 98/69
[2016-06-12] MEDS: ZOLPIDEM TARTRATE 5 MG TABLET PO PRN (21:03)
[2016-06-12 22:00] VITALS: BP 98/69
[2016-06-12] MEDS ORDERED: LORAZEPAM INJ 2 MG/ML VIAL IM ONE (22:00)
--- NOTE | 2016-06-12 22:00 | NUR ---
PT IS VERY AGITATED, SCREAMING / YELLING AND GETTING OUT OF THE BED. SAFETY PRECAUTIONS OBSERVED. PLACED A CALL TO ALFRED VILLANUEVA WITH NEW ORDER NOTED AND CARRIED OUT
--- NOTE | 2016-06-12 22:30 | NUR ---
ATTEMPTED TO INSERT IV X2 , PT REFUSED AT THIS TIME, VERY AGITATED . CHARGE NURSE AWARE . WILL TRY AGAIN LATER.
--- NOTE | 2016-06-12 23:40 | NUR ---
PT ASLEEP AT THIS TIME. AROUSABLE. NO DISTRESS , NO SOB NOTED. SAFETY PRECAUTIONS OBSERVED. WILL CONT TO MONITOR.
--- NOTE | 2016-06-13 00:30 | NUR ---
PT REMAINS AGITATED , HITTING STAFF, SCREAMING, TRYING TO GET OUT OF THE BED. SAFETY PRECAUTIONS OBSERVED, ORIENTED PT TO REALITY. 1:1 SITTER AT BED SIDE. WILL CONT TO MONITOR.
--- NOTE | 2016-06-13 01:30 | NUR ---
ATTEMPTED TO INSERT IV , PT REFUSED AT THIS TIME, RISK AND BENEFITS EXPLAINED.
--- NOTE | 2016-06-13 04:30 | NUR ---
ATTEMPTED TO INSERT IV , ON LAC G# 20 WITH GOOD VENOUS RETURN, PT STAR WELL.
[2016-06-13] MEDS ORDERED: IV SET PRIMARY PUMP SET 1 EA INFUS.SET MC ONE (05:04)
--- NOTE | 2016-06-13 06:38 | NUR ---
MS RN NOTES PT IN BED, ASLEEP AT THIS TIME, AROUSABLE, VERBALLY RESPONSIVE . NO DISTRESS, NO SOB NOTED. IV SITE ON LEFT WRIST INTACT AND PATENT, NO S/S OF INFILTRATION NOTED. SAFETY PRECAUTIONS OBSERVED. NO C/O PAIN OR DISCOMFORT AT THIS TIME. CALL LIGHT WITHIN REACH. WILL ENDORSE TO NEXT SHIFT FOR BASSAM.
[2016-06-13 06:52] LABS: BASOPHILS % (AUTO) 0.7 % (0.0-2.0); EOSINOPHILS # (AUTO) 0.8 /CMM (0.0-0.7); EOSINOPHILS % (AUTO) 12.6 % (0.0-6.0); HEMATOCRIT 38 % (33-45); HEMOGLOBIN 12.8 g/dL (11.5-14.8); LYMPHOCYTES # (AUTO) 2.5 /CMM (0.8-4.8); LYMPHOCYTES % (AUTO) 38.2 % (20.0-44.0); MEAN CORPUSCULAR HEMOGLOBIN 29 PG (26.0-33.0); MEAN CORPUSCULAR HGB CONC 34 g/dl (31.0-36.0); MEAN CORPUSCULAR VOLUME 85 fL (82-100); MONOCYTES # (AUTO) 0.5 /CMM (0.1-1.30); MONOCYTES % (AUTO) 7.6 % (2.0-12.0); NEUTROPHILS # (AUTO) 2.7 /CMM (1.8-8.9); NEUTROPHILS % (AUTO) 40.9 % (43.0-81.0); PLATELET COUNT (AUTO) 223 /CMM (150-450); RDW COEFFICIENT OF VARIATION 14.1 (11.5-15.0); WHITE BLOOD COUNT (AUTO) 6.6 K/uL (4.3-11.0)
[2016-06-13 07:03] LABS: ALBUMIN 2.8 g/dL (3.4-5.0); BILIRUBIN,TOTAL 0.3 mg/dL (0.2-1.0); CALCIUM, SERUM 8.9 mg/dL (8.5-10.1); PHOSPHORUS 3.8 mg/dL (2.5-4.9); POTASSIUM 3.7 mmol/L (3.5-5.1); TOTAL PROTEIN, SERUM 5.5 g/dL (6.4-8.2)
[2016-06-13] MEDS: PANTOPRAZOLE 40 MG TABLET.DR PO SCH (07:30)
--- NOTE | 2016-06-13 07:30 | NUR ---
m/s career technical counselor: notes noted iv site to left ac swelling. ivf stopped and removed with tip intact. will continue to monitor.
[2016-06-13 08:00] VITALS: BP 102/49
--- NOTE | 2016-06-13 09:20 | NUR ---
m/s aerial photographer: notes mrsa suirvellance collected and sent to lab.
--- NOTE | 2016-06-13 09:44 | NUR ---
WOUND CARE CONSULT: PATIENT SEEN AND SKIN ASSESSMENT DONE. PATIENT UNABLE TO TURN AND REPOSITION SELF IN BED, INCONTINENT, LEIGHTON 12, NURSING STAFF ORDERED STRYLER ISOFLEX JINA BED. SEE TODAY'S SKIN ASSESSMENT IN PCS ALONG WITH RECOMMENDATIONS. ALSO NOTED SACRAL BLANCHING REDNESS. RECOMMEND MOISTURE PROTECTION AND PRESSURE PREVENTION MEASURES ORDERED. ALL DISCUSSED WITH NURSING STAFF. MD IN AGREEMENT WITH PLAN OF CARE. Addendum: 06/13/16 at 0946 by VAISHALI HANLEY WNDNU Amended: Links added.
--- NOTE | 2016-06-13 10:45 | NUR ---
m/s manager of data: md visit seen and examined by dr. joe at this time. per md ble is not cellulitis. pt stable for discharge for [facility]. charlie (case management) made aware. per dr. jackson (concrete engineer for dr. cavazos), will not accept pt back to [facility]. dr. joe made aware and will send her back to assisted living. cn made aware. awaiting order.
--- NOTE | 2016-06-13 12:45 | NUR ---
m/s machine shop instructor: notes pt very agitated m/b throwing things to staff, hitting, grabbing, scratching, and yelling/screaming. paged dr. joe, left message to [employer]. 1:1 intervention provided. encouraged to verbalized feelings. will monitor.
--- NOTE | 2016-06-13 13:00 | NUR ---
m/s cost estimator: notes pt remains aggressive towards staff m/b hitting, scratching, and throwing pillow/linens. dr. joe on the phone and made aware with order for psych consult. dr. cavazos is on vacation. dr. alston (sanitation lead) notified, left message. cn aware. will continue to monitor.
[2016-06-13] MEDS ORDERED: OLANZAPINE 2.5 MG TABLET PO PRN ×2 (13:30)
[2016-06-13] MEDS ORDERED: TEMAZEPAM 7.5 MG CAPSULE PO PRN (13:30)
[2016-06-13] MEDS ORDERED: OLANZAPINE 10 MG VIAL IM ONE (13:30)
--- NOTE | 2016-06-13 13:30 | NUR ---
m/s suit maker: notes dr. alston called back and informed md re: pt's escalating behavior with order to give zyprexa 5mg im x 1 and continue all her psychotropic meds. orders read back and carried out and acknowledged.
--- NOTE | 2016-06-13 13:34 | NUR ---
m/s woodwork teacher: notes zyprexa 5mg im given to right buttock. will continue to monitor.
--- NOTE | 2016-06-13 14:00 | NUR ---
m/s outside dealer sales representative: notes pt continue to be aggressive m/b scratching, hitting, and throwing objects. called son to talk to pt, but still no help. per son he will come to visit after work. tyrone (dtr-in-law) on the phone and asked her if she can sit with the pt due to agitation, stated, "i will come after work." tyrone spoke to pt, but pt unable to remember her and started shouting at her on the phone and cursing. cn made aware.
[2016-06-13] MEDS: LORAZEPAM 0.5 MG TABLET PO PRN (14:30)
--- NOTE | 2016-06-13 14:30 | NUR ---
m/s social security assessor: notes ativan 0.5mg offered, but pt keeps refusing med. called son to talk to pt and still pt refuses med. encouraged to verbalized feelings. 1:1 intervention provided prn. after 30 mins pt able to take ativan as ordered and sitter provided per cn. will continue to monitor.
[2016-06-13] MEDS: SERTRALINE HCL 25 MG TABLET PO SCH (15:56)
[2016-06-13] MEDS: MEMANTINE HCL 5 MG TABLET PO SCH (15:56)
--- NOTE | 2016-06-13 16:00 | NUR ---
m/s home theatre technician: notes pt remains agitated. due meds given with prn zyprexa 1.25mg po as ordered. continue on 1:1 sitter. will continue to monitor.
--- NOTE | 2016-06-13 17:00 | NUR ---
m/s material requirements planning manager: notes continue on 1:1 sitter, pt remains confused and disoriented to time, place, and situation. pt gets angry when approached calmly. reality orientation provided prn. will continue to monitor.
--- NOTE | 2016-06-13 18:00 | NUR ---
m/s ceramic restorer: notes pt remains confused and disoriented. continue on 1:1. pt still refused to eat her meals despite encouragement from staff. pt easily gets agitated. reality orientation provided prn. will continue to monitor.
--- NOTE | 2016-06-13 19:00 | NUR ---
m/s supervisor files: notes report given to devorah (jim) for continuity of care. sitter remains at bedside. will monitor.
--- NOTE | 2016-06-13 19:15 | NUR ---
MS RN NOTES RECEIVED PT IN BED, YELLING, SCREAMING AND TRYING TO GET OUT OF THE BED. SITTER AT BED SIDE. PT NOT IN DISTRESS OR SOB. SAFETY PRECAUTIONS OBSERVED. ALL NEEDS ATTENDED AT THIS TIME. WILL CONTINUE TO MONITOR.
[2016-06-13] MEDS: ZOLPIDEM TARTRATE 5 MG TABLET PO PRN (20:39)
[2016-06-13 22:00] VITALS: BP 112/64
--- NOTE | 2016-06-13 22:40 | NUR ---
MS RN NOTES PT REMAINS AGGRESSIVE TOWARDS STAFF THROWING PILLOWS, LINENS CURSING AND SCREAMING. CHARGE NURSE AWARE, SAFETY PRECAUTIONS OBSERVED. SITTER AT BEDSIDE. ZYPREXA GIVEN ORDERED. WILL CONT TO MONITOR.
[2016-06-14] MEDS: LORAZEPAM 0.5 MG TABLET PO PRN ×3 (01:06→22:12)
--- NOTE | 2016-06-14 06:29 | NUR ---
MS RN NOTES PT IN BED, ASLEEP AT THIS TIME. NO ACUTE DISTRESS, NO SOB NOTED. SITTER AT BED SIDE. NO S/S OF PAIN OR DISCOMFORT AT THIS TIME. ALL NEEDS ATTENDED AND MET. KEPT COMFORTABLE. SAFETY PRECAUTIONS OBSERVED. WILL ENDORSE TO NEXT SHIFT FOR BASSAM.
--- NOTE | 2016-06-14 07:30 | NUR ---
AM RN NOTE Received patient sleeping comfortably in her bed and 1:1 sitter at bedside. No SOB noted resp even and non-labored. Per systems security analyst nurse, pt removed HL and was aware. Bed in low locked position. Will continue to monitor.
[2016-06-14] MEDS: MEMANTINE HCL 5 MG TABLET PO SCH ×3 (09:00→16:12)
[2016-06-14] MEDS: PANTOPRAZOLE 40 MG TABLET.DR PO SCH ×2 (09:12→09:16)
--- NOTE | 2016-06-14 09:20 | NUR ---
AM RN NOTE Patient sleeping comfortably, refused V/S to be taken, refused meds and breakfast. Will continue to monitor. 1:1 sitter at bedside.
--- NOTE | 2016-06-14 11:15 | NUR ---
AM RN NOTE Patient calm lying in her bed V/S taken at this time. BP118/57 T98.2 P64 R20 PA0/10 O2 sat 99% at RA.
[2016-06-14 11:16] VITALS: BP 118/57
--- NOTE | 2016-06-14 12:00 | NUR ---
AM RN NOTE Patient lying in bed with eyes closed, calm, visited by daughter.
--- NOTE | 2016-06-14 14:46 | NUR ---
AM RN NOTE Patient seen and assessed by Dr. Gan (Psychiatrist) with new orders. Addendum: 06/14/16 at 1449 by MILADY KNIGHT RN MD aware that pt refused meds this am and refusing IV hydration.
[2016-06-14] MEDS ORDERED: OLANZAPINE 2.5 MG TABLET PO PRN (15:00)
--- NOTE | 2016-06-14 15:02 | NUR ---
AM RN NOTE Called pharmacy spoke with Sharmila to verify Zyprexa order.
[2016-06-14] MEDS: OLANZAPINE 5 MG/TAB.RAPDIS PO SCH ×2 (15:25→20:26)
[2016-06-14] MEDS: SERTRALINE HCL 25 MG TABLET PO SCH (16:11)
--- NOTE | 2016-06-14 16:25 | NUR ---
AM RN NOTE Patient noted with crying out loud and calling for her brother unable to redirect. PRN ativan given as ordered.
--- NOTE | 2016-06-14 18:28 | NUR ---
AM RN NOTE Patient awake, anxious at times. 1:1 sitter at bedside. Will endorse care to next shift.
--- NOTE | 2016-06-14 19:30 | NUR ---
RN NOTES: RECEIVED ENDORSEMENT PATIENT IS CRYING ON AND OFF SHE JUST RECEIVED HER PRN MEDICATION FOR AGITATION, WITH 1;1 SITTER, TRYING TO PACIFY THE PATIENT AND DO DIVERSION, FALL, SAFETY AND ASPIRATION PRECAUTION OBSERVE, BED LOW AND LOCKED, CALL LIGHT WITH IN REACH.
[2016-06-14] MEDS: HYDROCODONE/APAP 5/325MG 1 EACH TABLET PO PRN ×2 (19:56→20:07)
[2016-06-14 20:00] VITALS: BP 123/68
--- NOTE | 2016-06-14 20:08 | NUR ---
RN NOTES; SCREAMING AND SHOUTING, TRYING TO PACIFY HER AND OFFERED PAIN MEDICATION,PAIN 4/10,FIRST SHE TOOK IT IN HER HAND THEN SHE THROW IT AWAY AND REFUSE TO TAKE THE MEDICATION.DESPITE EXPLANATION PATIENT IS NOT LISTENING.
--- NOTE | 2016-06-14 20:14 | NUR ---
RN NOTES; CREATIVE SERVICES WRITER HELP HER TO CHANGE DIAPER,SHE WAS SHOUTING AND UNCOOPERATIVE, TRYING TO SCRATCH THE CREATIVE SERVICES WRITER,EXPLAINED TO HER WE NEED TO CHANGE DIAPER,THEN IT WAS DONE.
--- NOTE | 2016-06-14 20:27 | NUR ---
RN NOTES: ABLE TO TAKE HER ZYPREXA 2.5 MG,WITH APPLE SAUCE,SHE IS A LITTLE BIT MORE COOPERATIVE NOW.KEEP ON CLOSE WATCH.
[2016-06-14] MEDS: ZOLPIDEM TARTRATE 5 MG TABLET PO PRN (22:12)
--- NOTE | 2016-06-14 22:31 | NUR ---
RN NOTES: STARTED TO SCREAM AGAIN WHEN SHE HEARD THE ROOM MATE SHOUTING,SHE CANNOT SLEEP PRN ATIVAN AND AMBIEN GIVEN WITH PUDDING AND APPLESAUCE, ABLE TO CONVINCE HER TOO TAKE IT, LITTLE BY LITTLE UNTIL SHE FINISHED.KEEP IN COMFORTABLE POSITION AFTE MEDICATION TAKEN SHE KEEP QUIET.
--- NOTE | 2016-06-15 01:30 | NUR ---
RN NOTES: ABLE TO SLEEP AND REST, KEEP ON CLOSE WATCH, CALL LIGHT WITHIN REACH.
--- NOTE | 2016-06-15 06:39 | NUR ---
RN NOTES: SLEEPING COMFORTABLY IN BED, NO PAIN OR DISCOMFORT,ENDORSED ON THE NEXT SHIFT FOR CONTINUITY OF CARE.
[2016-06-15] MEDS: MEMANTINE HCL 5 MG TABLET PO SCH ×2 (08:46→16:48)
[2016-06-15] MEDS: OLANZAPINE 5 MG/TAB.RAPDIS PO SCH ×2 (08:46→21:44)
[2016-06-15] MEDS: PANTOPRAZOLE 40 MG TABLET.DR PO SCH (08:46)
--- NOTE | 2016-06-15 08:48 | NUR ---
PATIENT IS NOTED SLEEPING ,AROUSED BY CALLING HER NAME .ALL DUE MEDS WELL NURSING CARE AT THIS TIME GIVEN AND WELL TOLERATED.PATIENT CONTINUED TO BE CLOSELY MONITORED AT THIS TIME .PATIENT STABLE.
[2016-06-15] MEDS ORDERED: OLAN5TAB6 PO (10:46)
[2016-06-15] MEDS ORDERED: Olanzapine PO (10:46)
[2016-06-15 10:57] VITALS: BP 157/66
[2016-06-15 16:00] VITALS: BP 153/67
[2016-06-15] MEDS: SERTRALINE HCL 25 MG TABLET PO SCH (16:48)
--- NOTE | 2016-06-15 19:10 | NUR ---
RN NOTES RECEIVED PT ASLEEP, HOB ELEVATED, BREATHING REGULAR, NO SIGNS OF DISTRESS AND DISCOMFORT NOTED, TOLERATING ROOM AIR., WITH SITTER AT BEDSIDE. KEPT BED IN THE LOWEST POSITION, SAFETY MEASURES IN PLACED. KEPT COMFORTABLE AND ATTENDED. WILL CONTINUE TO MONITOR PT.
--- NOTE | 2016-06-15 21:44 | NUR ---
RN NOTES DUE ZYPREXIA GIVEN PO AND TOLERATED WELL. PT COOPERATIVE, QUIET , DENIES ANY PAIN AND DISCOMFORT. PT ALERT AND ORIENTED X1, WITH CONFUSION AND DISORIENTATION NOTED. WILL CONTINUE TO MONITOR PT.
[2016-06-15 22:00] VITALS: BP 132/61
[2016-06-15] MEDS: LORAZEPAM 0.5 MG TABLET PO PRN (22:57)
--- NOTE | 2016-06-15 22:57 | NUR ---
RN NOTES PT IS YELLING AT THE SITTER AND INSISTING TO AMBULATE BY HERSELF WITHOUT ASSISTANCE. PT IS ALSO HITTING STAFF WHEN APPROACHED, ATIVAN TAB GIVEN PO FOR ANXIETY. WILL CONTINUE TO MONITOR PT.
[2016-06-16] MEDS: ZOLPIDEM TARTRATE 5 MG TABLET PO PRN (00:11)
[2016-06-16] MEDS: HYDROCODONE/APAP 5/325MG 1 EACH TABLET PO PRN (00:17)
--- NOTE | 2016-06-16 00:17 | NUR ---
RN NOTES PT WAS NOTED VERY AGITATED, ON AND OFF CRYING AND YELLING AT THE STAFFS. AMBIEN 5 MG AND NORCO 5/325 MG TAB GIVEN PO. WILL CONTINUE TO MONITOR PT.
--- NOTE | 2016-06-16 03:30 | NUR ---
RN NOTES PT IS QUIET AND COOPERATIVE WITH TREATMENT. AGREED TO HAVE PICTURES TAKEN OF THE SKIN CONDITION. WILL CONTINUE TO MONITOR PT.
--- NOTE | 2016-06-16 07:30 | NUR ---
MS RN RECEIVE DON BED,SLEEPING,NOT IN ANY FORM OF DISTRESS, RESPIRATIONS EVEN AND UNLABORED, NO SOB NOTED.PATIENT W/ SITTER FOR SAFETY AND COMFORT.
--- NOTE | 2016-06-16 07:35 | NUR ---
RN NOTES PT ASLEEP, BREATHING REGULAR AND UNLABORED, NO SIGNS OF DISTRESS AND DISCOMFORT NOTED, QUIET AND CALM. KEPT COMFORTABLE AND ATTENDED. ALL NEEDS MET. ENDORSED TO MORNING RN FOR CONTINUITY OF CARE.
[2016-06-16 08:00] VITALS: BP 145/58
--- NOTE | 2016-06-16 09:00 | NUR ---
ms rn still sleeping,no distress noted, will give meds later.
[2016-06-16] MEDS: MEMANTINE HCL 5 MG TABLET PO SCH ×2 (09:05→18:18)
[2016-06-16] MEDS: OLANZAPINE 5 MG/TAB.RAPDIS PO SCH ×2 (09:05→21:42)
[2016-06-16] MEDS: PANTOPRAZOLE 40 MG TABLET.DR PO SCH (09:05)
--- NOTE | 2016-06-16 10:00 | NUR ---
ms rn refused breakfast.
[2016-06-16 15:56] VITALS: BP 145/88
--- NOTE | 2016-06-16 16:00 | NUR ---
ms rn patient awake already, agitated and screaming.
[2016-06-16] MEDS: LORAZEPAM 0.5 MG TABLET PO PRN (16:20)
--- NOTE | 2016-06-16 16:30 | NUR ---
ms rn texted dr. joe for ativan order, patient is screaming and agitated.
[2016-06-16] MEDS ORDERED: LORAZEPAM INJ 2 MG/ML VIAL IM/IV ONE (17:00)
--- NOTE | 2016-06-16 17:05 | NUR ---
ms fernandez ativan 1mg im given,will monitor for effectiveness.
--- NOTE | 2016-06-16 17:32 | NUR ---
ms rn patient calm down a little bit.
[2016-06-16] MEDS: SERTRALINE HCL 25 MG TABLET PO SCH (18:18)
--- NOTE | 2016-06-16 18:43 | NUR ---
MS RN ON BED, NO DISTRESS NOTED, PATIENT CALM DOWN NOW.
--- NOTE | 2016-06-16 19:40 | NUR ---
RN OPENING NOTES RECEIVED REPORT FROM MARI RNSOBEIDA. FOUND Pt AWAKE RESTING IN BED. NO S/S OF ACUTE DISTRESS OR SOB NOTED; SLIGHTLY AGITATED AT TIMES, HAS BOUTS OF SCREAMING TANTRUMS AND THEN QUIETS DOWN. Pt IS A/OX1, VERY CONFUSED & DISORIENTED. NO IV ACCESS. WITH 1:1 SITTER PAWEL. SAFETY MEASURES IN PLACE. BED LOW, LOCKED, HOB ELEVATED, & SIDE RAILS UP. D/C ORDER TO SNF BUT WAITING FOR BED TO OPEN UP AT [facility]. WILL CONTINUE TO MONITOR Pt THROUGHOUT THE NIGHT FOR SAFETY.
[2016-06-16 22:00] VITALS: BP 145/76
[2016-06-17] MEDS: ZOLPIDEM TARTRATE 5 MG TABLET PO PRN (00:42)
--- NOTE | 2016-06-17 06:55 | NUR ---
RN CLOSING NOTES Pt WAS AGITATED AND DID NOT SLEEP MUCH DURING THE NIGHT. AMBIEN WAS NOT EFFECTIVE. NO SIGNIFICANT CHANGES DURING THE SHIFT. ALL NEEDS MET AND ATTENDED TO. NO S/S OF ACUTE DISTRESS OR SOB NOTED. SAFETY MEASURES IN PLACE. 1:1 SITTER AT BEDSIDE. POSSIBLE D/C TO [facility]. WILL ENDORSE TO DAYSHIFT RN TO FOLLOW UP WITH CM AND FOR Pt's BASSAM AND SAFETY.
--- NOTE | 2016-06-17 08:00 | NUR ---
RN AM NOTES RECEIVED PATIENT IN BED AGITATED AND TRYING TO GET OUT OF BED, PATIENT CALMED DOWN AFTER REASSURING PATIENT SHE IS SAFE. WILL CONTINUE TO MONITOR.
[2016-06-17] MEDS: OLANZAPINE 5 MG/TAB.RAPDIS PO SCH (09:50)
[2016-06-17] MEDS: MEMANTINE HCL 5 MG TABLET PO SCH ×2 (09:50→17:00)
[2016-06-17] MEDS: PANTOPRAZOLE 40 MG TABLET.DR PO SCH (09:50)
[2016-06-17 09:51] VITALS: BP 156/72
--- NOTE | 2016-06-17 10:38 | NUR ---
RECONFIRMED THAT MICHAEL MOSCOSO IS WORKING ON FINDING PLACEMENT AT [facility] FOR PATIENT PER DISCHARGE PLAN. WILL CONTINUE TO FOLLOW UP.
[2016-06-17] MEDS: SERTRALINE HCL 25 MG TABLET PO SCH (17:00)
[2016-06-17 17:42] VITALS: BP 129/66
--- NOTE | 2016-06-17 17:46 | NUR ---
ENTRY LEVEL ELECTRICAL ENGINEER NOTES PATIENT WITH DISCHARGE PACKET AND PERSONAL BELONGINGS, LEAVING HOSPITAL ON [facility] ACCOMPANIED BY 2 PSYCHIATRIC LPN. REPORT TO SNF GIVEN. FAMILY AND MD AWARE. PATIENT IN STABLE CONDITION. ALL NEEDS MET. PATIENT LEFT HOSPITAL SAFELY. Addendum: 06/17/16 at 1751 by MARTIR KOO RN PATIENT REFUSED PICTURES AND 5PM MEDS.
[2016-06-17 18:47] VITALS: BP 129/66
== END 2016-06-17 18:23 | DRG 689 ==
LOC: MED 14:51
PROVIDERS: ADMIT Internal Medicine; ATTEND Internal Medicine
DX: N39.0 Urinary tract infection, site not specified (principal); G93.41 Metabolic encephalopathy; I10 Essential (primary) hypertension; I25.10 Atherosclerotic heart disease of native coronary artery without angina pectoris; F03.90 Unspecified dementia, unspecified severity, without behavioral disturbance, psychotic disturbance, mood disturbance, and anxiety; Z87.440 Personal history of urinary (tract) infections; F29 Unspecified psychosis not due to a substance or known physiological condition
CPT/HCPCS: 36415; 80053-TC; 80061-TC; 83735-TC; 84100-TC; 85025-TC; 87081-TC; J2060; J3490; J7030; Z7610

== ENCOUNTER 2016-06-28 17:37 | Inpatient (IN) | payer OTHER, MEDICAID ==
[~2016-06-28] VITALS: Ht 160 cm; Wt 73.9 kg
[~2016-06-28 17:37] MED LIST changes: +ALLA266C2 TP; -CALC-1074 PO; +CALC-7 PO; -FURO20TA4 PO; +MAG30ORA PO; +MAGN400O6 PO; -MEMA14CA PO; +MEMA5TAB PO; +OLAN5TAB6 PO; +Olanzapine PO; -POTA-10 PO; +SERT25TA PO
--- NOTE | 2016-06-28 17:55 | NUR ---
PT BIB PA FOR PSYCH EVAL D/T AGITATION AND NONCOMPLIANCE ITH STAFF INSTURCTION. UPON ARRIVAL PT IS AGITATED, YELLING, SCREAMING, THOUGH NONVIOLENT. UNABLE TO MAKE NEEDS KNOWN. DISORIENTED. NAD NOTED. RESP EVEN UNLABORED. IN ER BED 10.
[2016-06-28 18:01] LABS: BASOPHILS % (AUTO) 0.6 % (0.0-2.0); EOSINOPHILS # (AUTO) 0.4 /CMM (0.0-0.7); EOSINOPHILS % (AUTO) 5.8 % (0.0-6.0); HEMATOCRIT 40 % (33-45); HEMOGLOBIN 13.5 g/dL (11.5-14.8); LYMPHOCYTES # (AUTO) 2.6 /CMM (0.8-4.8); LYMPHOCYTES % (AUTO) 38.2 % (20.0-44.0); MEAN CORPUSCULAR HEMOGLOBIN 29 PG (26.0-33.0); MEAN CORPUSCULAR HGB CONC 33 g/dl (31.0-36.0); MEAN CORPUSCULAR VOLUME 86 fL (82-100); MONOCYTES # (AUTO) 0.5 /CMM (0.1-1.30); MONOCYTES % (AUTO) 7.3 % (2.0-12.0); NEUTROPHILS # (AUTO) 3.2 /CMM (1.8-8.9); NEUTROPHILS % (AUTO) 48.1 % (43.0-81.0); PLATELET COUNT (AUTO) 187 /CMM (150-450); RDW COEFFICIENT OF VARIATION 13.7 (11.5-15.0); RED BLOOD CELL COUNT(AUTO) 4.69 MIL/uL (4.0-5.2); WHITE BLOOD COUNT (AUTO) 6.8 K/uL (4.3-11.0)
[2016-06-28] MEDS ORDERED: OLAN2.5T3 PO (18:14)
[2016-06-28] MEDS ORDERED: ACET-2605 PO (18:14)
[2016-06-28] MEDS ORDERED: ASCO500T9 PO (18:14)
[2016-06-28] MEDS ORDERED: CLON0.5T PO (18:14)
[2016-06-28] MEDS ORDERED: NA P133E RC (18:14)
[2016-06-28] MEDS ORDERED: MULT-659 PO (18:14)
[2016-06-28] MEDS ORDERED: BISA10SU8 RC (18:14)
[2016-06-28] MEDS ORDERED: LORA0.5T PO (18:14)
[2016-06-28] MEDS ORDERED: MIRT15TA PO (18:14)
[2016-06-28] MEDS ORDERED: DEXT1CAP3 PO (18:14)
[2016-06-28 18:16] LABS: ALBUMIN 3.5 g/dL (3.4-5.0); BILIRUBIN,DIRECT 0.2 mg/dL (0.0-0.2); BILIRUBIN,TOTAL 0.7 mg/dL (0.2-1.0); CALCIUM, SERUM 10.2 mg/dL (8.5-10.1); CREATININE 1.3 mg/dL (0.6-1.3); POTASSIUM 3.5 mmol/L (3.5-5.1); TOTAL PROTEIN, SERUM 6.6 g/dL (6.4-8.2)
[2016-06-28 18:18] LABS: SALICYLATE 1.2 mg/dL (2.8-20.0)
--- NOTE | 2016-06-28 18:45 | NUR ---
PT REMAINS AGITATED IN BED, COMFORT MEASURES PROVIDED.
[2016-06-28 19:06] LABS: APPEARANCE,URINE Clear (CLEAR); BLOOD, URINE Negative Ery/uL (NEGATIVE); COLOR,URINE Dark (YELLOW); KETONES,URINE 15 (NEGATIVE); LEUKOCYTE ESTERASE ,URINE Negative (NEGATIVE); NITRITE, URINE Negative (NEGATIVE); PH,URINE 5.5 (5.0-8.0); PROTEIN,URINE 30 mg/dl (NEGATIVE); UGLUCOSE Negative (NEGATIVE)
[2016-06-28 19:11] LABS: BILIRUBIN,URINE MODERATE (NEGATIVE)
[2016-06-28 19:16] LABS: RBC,URINE 0-2 /HPF (0-2); WBC,URINE 0-2 /HPF (0-3)
[2016-06-28 19:17] LABS: ADD URINE CULTURE NO; BACTERIA,URINE Rare /HPF (None Seen); MUCUS,URINE Few /LPF (None Seen); SQUAMOUS EPITHELIAL CELL,UR Few /HPF (None Seen)
[2016-06-28 19:19] LABS: CANNABINOID, URINE NEGATIVE (NEGATIVE); PHENCYCLIDINE SCREEN,URINE NEGATIVE (NEGATIVE); URINE AMORPHOUS URATE Rare /HPF (None Seen)
--- NOTE | 2016-06-28 19:25 | NUR ---
ETA FOR PINKY IS 10-15 MINUTES
--- NOTE | 2016-06-28 19:50 | NUR ---
PINKY MEMBER OF CONGRESS AT BEDSIDE
[2016-06-28] MEDS ORDERED: WATER FOR INJECTION,STERILE 10 ML ONE (20:00)
[2016-06-28] MEDS ORDERED: OLANZAPINE 10 MG VIAL IM ONE ×2 (20:00→20:30)
--- NOTE | 2016-06-28 20:06 | NUR ---
PT CONTINUING TO CRY AND SCREAM, MAKING NO SENSE. ZYPREXA 5MG IM ADMINISTERED PER VERBAL ORDER.
--- NOTE | 2016-06-28 20:21 | NUR ---
REPORT GIVEN TO SHAYNA EPPERSON FOR ADMISSION. NAD NOTED. PT CLEANED AND LINENS CHANGED.
--- NOTE | 2016-06-28 20:25 | NUR ---
PT TRANSPORTED TO [facility] IN STABLE CONDITION
--- NOTE | 2016-06-28 20:30 | NUR ---
ADMISSION NOTES: ADMITTED AN 86 Y/O WHITE FEMALE FROM [facility] AND EVALUATED AT [facility]. ON 5150 HOLD A S GD AND DTO. BASED ON HOLD, PATIENT INCREASED AGITATION AND COMBATIVE BEHAVIOR. UPON FACE TO FACE EVALUATION, PATIENT APPEARED CONFUSED, DISORGANIZED, SCREAMING, YELLING, CRYING, ANXIOUS, RESTLESS, POOR INSIGHT, POOR JUDGEMENT, NO SOB, NO ACUTE DISTRESS, BREATHING EVEN AND UNLABORED, NO S/S OF PAIN AND DISCOMFORT, PATIENT RECEIVE ZYPREXA 5MG IM FROM THE ER. BODY CHECK DONE. PICTURE DONE, PATIENT UNABLE TO SIGN PAPER WORKS, BELONGINGS AND CONTRABAND INSPECTED, COLLECTED AND PLACED TO LOCKED CABINET. WILL CONTINUE TO MONITOR [id number] FOR SAFETY.
[2016-06-28] MEDS ORDERED: ACETAMINOPHEN 325 MG TABLET PO PRN (21:00)
[2016-06-28] MEDS ORDERED: MAGNESIUM HYDROXIDE 30 ML UDC PO PRN (21:00)
[2016-06-28] MEDS ORDERED: MAG HYDROX/AL HYDROX/SIMETH 30 ML UDC PO PRN (21:00)
--- NOTE | 2016-06-28 21:00 | NUR ---
GPS RN NOTE: NOTIFIED DR. VILLARREAL AND DR. SANDOVAL ABOUT THE ADMISSION AND TO RECONCILE THE MEDICATION
[2016-06-28 21:30] VITALS: BP 124/88
[2016-06-28] MEDS ORDERED: LORAZEPAM 0.5 MG TABLET ONE (22:11)
[2016-06-28] MEDS ORDERED: TEMAZEPAM 7.5 MG CAPSULE ONE (22:11)
--- NOTE | 2016-06-28 22:30 | NUR ---
GPS RN NOTE: PATIENT NOTED FOR BEING AGITATED, CRYING, SCREAMING. OFFERED ATIVAN 0.5MG PATIENT THREW THE MEDICATION TO THE FLOOR AND SAID "I DONT WANT IT". OFFERED RESTORIL 7.5MG, PATIENT REFUSED MEDICATION, REDIRECTED THE PATIENT, WILL CONTINUE TO MONITOR [id number] FOR SAFETY
[2016-06-29 05:06] VITALS: BP 124/88
[2016-06-29 07:03] LABS: BASOPHILS % (AUTO) 0.7 % (0.0-2.0); EOSINOPHILS # (AUTO) 0.5 /CMM (0.0-0.7); EOSINOPHILS % (AUTO) 8.2 % (0.0-6.0); HEMATOCRIT 38 % (33-45); HEMOGLOBIN 12.9 g/dL (11.5-14.8); LYMPHOCYTES # (AUTO) 2.5 /CMM (0.8-4.8); MEAN CORPUSCULAR HEMOGLOBIN 29 PG (26.0-33.0); MEAN CORPUSCULAR HGB CONC 34 g/dl (31.0-36.0); MEAN CORPUSCULAR VOLUME 85 fL (82-100); MONOCYTES # (AUTO) 0.5 /CMM (0.1-1.30); MONOCYTES % (AUTO) 8.7 % (2.0-12.0); NEUTROPHILS # (AUTO) 2.5 /CMM (1.8-8.9); NEUTROPHILS % (AUTO) 41.4 % (43.0-81.0); PLATELET COUNT (AUTO) 216 /CMM (150-450); RDW COEFFICIENT OF VARIATION 14.3 (11.5-15.0); RED BLOOD CELL COUNT(AUTO) 4.51 MIL/uL (4.0-5.2); WHITE BLOOD COUNT (AUTO) 6.1 K/uL (4.3-11.0)
[2016-06-29 07:20] LABS: ALBUMIN 3.3 g/dL (3.4-5.0); BILIRUBIN,TOTAL 0.7 mg/dL (0.2-1.0); CALCIUM, SERUM 9.5 mg/dL (8.5-10.1); CREATININE 1.1 mg/dL (0.6-1.3); POTASSIUM 4.1 mmol/L (3.5-5.1); TOTAL PROTEIN, SERUM 6.2 g/dL (6.4-8.2)
--- NOTE | 2016-06-29 07:30 | NUR ---
GPS RN NOTE: LEFT MESSAGE TO SOSA NICOLE (SON)
[2016-06-29 08:00] VITALS: BP 143/90
--- NOTE | 2016-06-29 10:00 | NUR ---
RECEIVED PT. IN THE MANDI CHAIR IN THE DINING ROOM, CONFUSED AND DISORIENTED. NO DISTRESS AND NO AGITATION NOTED. WILL CONTINUE TO MONITOR FOR SAFETY.
[2016-06-29] MEDS ORDERED: OLANZAPINE 2.5 MG TABLET PO SCH ×3 (14:00→22:00)
--- NOTE | 2016-06-29 15:14 | NUR ---
ALFRED VILLANUEVA MADE AWARE TO RECONCILE MEDS AND SAID HE WILL RECONCILE.
[2016-06-29] MEDS ORDERED: ACETAMINOPHEN 325 MG TABLET PO PRN (15:30)
[2016-06-29 16:00] VITALS: BP 141/79
--- NOTE | 2016-06-29 17:36 | NUR ---
PT. IS TEARFUL, CRYING AND ANXIOUS, PRN MED OF ATIVAN PO GIVEN AND PT. SPITTED THE MED. WILL CONTINUE TO MONITOR FOR SAFETY.
[2016-06-29 20:16] VITALS: BP 128/63
[2016-06-29] MEDS: Z GUARD REMEDY 2 OZ OINT TP SCH (21:55)
[2016-06-29] MEDS ORDERED: MIRTAZAPINE 15 MG TABLET PO SCH (22:00)
[2016-06-29] MEDS: MIRTAZAPINE 15 MG TABLET PO SCH (22:16)
[2016-06-29] MEDS: TEMAZEPAM 7.5 MG CAPSULE PO PRN (23:24)
--- NOTE | 2016-06-30 01:00 | NUR ---
GPS RN NOTE: PATIENT SCREAMING, RESTLESS AND CRYING, ATTEMPTED TO GIVE ATIVAN 0.5MG FOR AGITATION AND TYLENOL 650 MG PO FOR POSSIBLE PAIN BUT PATIENT SPIT IT OUT. WILL CONTINUE TO MONITOR [id number] FOR SAFETY.
--- NOTE | 2016-06-30 02:04 | NUR ---
GPS RN NOTE: PATIENT CALM DOWN, QUIET AND FALL ASLEEP. WILL CONTINUE TO MONITOR [id number] FOR SAFETY
[2016-06-30 08:00] VITALS: BP 110/59
[2016-06-30] MEDS: ASPIRIN 81 MG TAB.CHEW PO SCH (08:07)
[2016-06-30] MEDS: DOCUSATE SODIUM 100 MG CAPSULE PO SCH (08:07)
[2016-06-30] MEDS: PROPRANOLOL LA 60 MG CAP.SA.24H PO SCH (08:07)
[2016-06-30] MEDS: Z GUARD REMEDY 2 OZ OINT TP SCH ×2 (08:10→21:31)
[2016-06-30] MEDS ORDERED: OLANZAPINE 2.5 MG TABLET PO SCH (09:00)
[2016-06-30] MEDS ORDERED: IV D5W 1,000 ML IV ONE (10:30)
[2016-06-30] MEDS ORDERED: IV SET PRIMARY PUMP SET 1 EA INFUS.SET MC ONE (11:13)
--- NOTE | 2016-06-30 11:33 | NUR ---
[id number]: NOTIFIED GARDEN CENTER MANAGER ABOUT LAB VALUES FOR HUONG ON 06/29/16: NA= 152, CHLORIDE= 114, ANION GAP= 15, BUN= 29, TOTAL PROTEIN= 6.2, ALBUMIN= 3.3. GARDEN CENTER MANAGER ALFRED VILLANUEVA ORDERED D5W IV I LITER AT 80 ML PER HOUR.
--- NOTE | 2016-06-30 12:48 | NUR ---
I have reviewed this patients psychosocial dated 06/03/16 and I can attest to the accuracy of the information therein. SW left a voicemail for Angeli from admission at [address], [place] [address] . fax [phone] and to confirm if they are able to accept the patient back. Will follow up. BIJAN also spoke with Altaf Pettit from the [facility] [phone] who is still working with the family but does not know what other facility he will be able to set up for the patient if current facility refuses to take the patient back. Upon this admission, pt is confused and oriented to self only. Pt. is irritable, unable to engage in a meaningful conversation, and does not have insight into her illness. Pt's affect is blunted. BIJAN was unable to assess for suicidal/homicidal ideations at this time.
[2016-06-30 16:00] VITALS: BP 111/60
[2016-06-30] MEDS: LORAZEPAM 0.5 MG TABLET PO PRN (17:05)
--- NOTE | 2016-06-30 17:05 | NUR ---
[id number]: GAVE ATIVAN 0.5 MG PO DUE TO SEVERE ANXIETY UPON PT REQUEST AND WILL CONTINUE TO MONITOR FOR EFFECTIVENESS OF MEDICATION
[2016-06-30 20:00] VITALS: BP 134/53
[2016-06-30] MEDS ORDERED: OLANZAPINE 2.5 MG TABLET PO PRN (20:00)
[2016-06-30 20:04] VITALS: BP 134/53
[2016-06-30] MEDS: OLANZAPINE 2.5 MG TABLET PO SCH (21:30)
[2016-06-30] MEDS: MIRTAZAPINE 15 MG TABLET PO SCH (21:30)
[2016-06-30] MEDS: TEMAZEPAM 7.5 MG CAPSULE PO PRN (22:28)
[2016-07-01] MEDS: DOCUSATE SODIUM 100 MG CAPSULE PO SCH (08:09)
[2016-07-01] MEDS: OLANZAPINE 2.5 MG TABLET PO SCH ×4 (08:10→21:51)
[2016-07-01] MEDS: PROPRANOLOL LA 60 MG CAP.SA.24H PO SCH (08:10)
[2016-07-01] MEDS: Z GUARD REMEDY 2 OZ OINT TP SCH ×2 (08:12→20:59)
[2016-07-01 08:48] VITALS: BP 122/58
[2016-07-01] MEDS: ASPIRIN 81 MG TAB.CHEW PO SCH (08:49)
[2016-07-01 16:07] VITALS: BP 117/81
--- NOTE | 2016-07-01 16:51 | NUR ---
UR update: BIJAN faxed updated clinicals (H&Ps, updated progress notes, med list, facesheet, and 5150) to [phone]. AUTHORIZATION#[id number] will follow up
--- NOTE | 2016-07-01 18:53 | NUR ---
OOU-IL-TASVF: GAVE MILK OF MAGNESIA 30 ML PO DUE TO CONSTIPATION UPON PT REQUEST AND WILL CONTINUE TO MONITOR FOR EFFECTIVENESS OF MEDICATION
[2016-07-01] MEDS: MIRTAZAPINE 15 MG TABLET PO SCH (21:51)
[2016-07-01 21:58] VITALS: BP 104/42
[2016-07-01] MEDS: TEMAZEPAM 7.5 MG CAPSULE PO PRN (23:30)
--- NOTE | 2016-07-01 23:31 | NUR ---
GPS/RN NOTE: TEMAZEPAM 7.5 MG CAP 1 PO GIVEN FOR INSOMNIA AND AGITATION
--- NOTE | 2016-07-02 04:14 | NUR ---
GPS/RN NOTE: PATIENT AWAKE, AGITATED, SCREAMS, CONFUSED. ZYPREXA 2.5 MG TAB 1 PO GIVEN.
[2016-07-02 08:00] VITALS: BP 111/52
[2016-07-02] MEDS: DOCUSATE SODIUM 100 MG CAPSULE PO SCH (08:13)
[2016-07-02] MEDS: PROPRANOLOL LA 60 MG CAP.SA.24H PO SCH (08:13)
[2016-07-02] MEDS: ASPIRIN 81 MG TAB.CHEW PO SCH (08:13)
[2016-07-02] MEDS: OLANZAPINE 2.5 MG TABLET PO SCH ×5 (08:14→20:45)
[2016-07-02] MEDS: Z GUARD REMEDY 2 OZ OINT TP SCH ×2 (08:15→20:45)
--- NOTE | 2016-07-02 14:39 | NUR ---
UR update: BIJAN faxed updated clinicals ( updated progress notes, med list) to [phone]. AUTHORIZATION#[id number]
--- NOTE | 2016-07-02 14:40 | NUR ---
BIJAN spoke with Angeli from admission at [facility] [address] [place] [address] , [place] [address] . fax [phone] and she reported that pt's insurance did not pay for skilled needs and with her medical only she has a copay which the son refused to pay; hence, pt is not on bed hold. Facility is unable to manage her and will not be able to accept her back. BIJAN notified Altaf from [facility] [phone] that pt. at this point needs a placement and only option is a board and care.
--- NOTE | 2016-07-02 14:41 | NUR ---
BIJAN spoke with [facility] dementia unit MICHAEL Olivares [phone] who stated that transferring the patient to [facility] is not an option. That was an option for the family prior to pt. being transferred to [facility] but not anymore and that she notified pt's daughter in law, Fide [phone] about that. BIJAN will call Fide to discuss. Elise feels it is best to have the patient in a board and care facility at this point if behavior can be managed.
--- NOTE | 2016-07-02 14:58 | NUR ---
BIJAN left a voicemail for Fide [phone] explaining how alf will not be an option due to insurance not willing to pay and because the co-pay has not been paid and spoke with Altaf from [facility] [phone] and discussed that pt. needs a board and care as no other option is available to her at this time. Altaf said he will speak with the family and will notify me of the decision.
[2016-07-02 16:00] VITALS: BP 108/60
--- NOTE | 2016-07-02 18:05 | NUR ---
patient was very anxious, confused, paranoid, yelling, screaming, crying, delusional, aggressive behavior, throwing linen to staff, refused take 1700 medication, Dr. Will prescribed Zyprexa 3 mg/ml im x1 now order taken, and carried out.
[2016-07-02] MEDS ORDERED: OLANZAPINE 10 MG VIAL IM STA (18:10)
--- NOTE | 2016-07-02 18:10 | NUR ---
administered zyprexa 3 mg/ml im x1 now left outer gluteal area as prescribed by md, v/ s take bp 108/60, p-60, 1:1 sitter next to the bed for safety, continued monitoring.
--- NOTE | 2016-07-02 20:06 | NUR ---
GPS/RN N OTE: PATIENT AWAE, ALERT, CRYING/SOBBING QUITE LOUD, CONFUSED. HAS 1:1 SITTER AT THE BEDSIDE. NO APPARENT DISTRESS NOTED
[2016-07-02 20:22] VITALS: BP 155/83
[2016-07-02] MEDS: Z GUARD REMEDY 2 OZ OINT TP PRN ×3 (20:40→20:44)
[2016-07-02] MEDS: LORAZEPAM 0.5 MG TABLET PO PRN (20:42)
--- NOTE | 2016-07-02 20:42 | NUR ---
GPS/RN NOTE: PATIENT AGITATED, CRYING, SCREAMING, AGITATED, LORAZEPAM 0.5 MG TAB 1 PO GIVEN.
[2016-07-02] MEDS: MIRTAZAPINE 15 MG TABLET PO SCH (20:45)
--- NOTE | 2016-07-02 20:48 | NUR ---
GPS/RN NOTE: REMERON 7.5 MG TAB 1 PO GIVEN WITH APPLE SAUCE. SITTER AT THE [facility].
[2016-07-03 08:00] VITALS: BP 129/80
--- NOTE | 2016-07-03 08:45 | NUR ---
UR update: BIJAN received a call from Erika from [facility] [phone] authorizing the patient for 9 days with a review due on Thursday, July 07, 2016. Auth # [id number]
[2016-07-03] MEDS ORDERED: DIVALPROEX SODIUM 125 MG CAP.SPRINK PO SCH (09:00)
[2016-07-03] MEDS: DOCUSATE SODIUM 100 MG CAPSULE PO SCH (10:05)
[2016-07-03] MEDS: PROPRANOLOL LA 60 MG CAP.SA.24H PO SCH (10:05)
[2016-07-03] MEDS: ASPIRIN 81 MG TAB.CHEW PO SCH (10:05)
[2016-07-03] MEDS: OLANZAPINE 2.5 MG TABLET PO SCH ×2 (10:06→13:03)
[2016-07-03] MEDS: Z GUARD REMEDY 2 OZ OINT TP SCH ×2 (10:09→21:06)
[2016-07-03 13:02] LABS: BASOPHILS % (AUTO) 0.5 % (0.0-2.0); EOSINOPHILS # (AUTO) 0.7 /CMM (0.0-0.7); EOSINOPHILS % (AUTO) 11.8 % (0.0-6.0); HEMATOCRIT 41 % (33-45); HEMOGLOBIN 13.9 g/dL (11.5-14.8); LYMPHOCYTES # (AUTO) 2.1 /CMM (0.8-4.8); LYMPHOCYTES % (AUTO) 36.7 % (20.0-44.0); MEAN CORPUSCULAR HEMOGLOBIN 29 PG (26.0-33.0); MEAN CORPUSCULAR HGB CONC 34 g/dl (31.0-36.0); MEAN CORPUSCULAR VOLUME 86 fL (82-100); MONOCYTES # (AUTO) 0.4 /CMM (0.1-1.30); MONOCYTES % (AUTO) 6.3 % (2.0-12.0); NEUTROPHILS # (AUTO) 2.5 /CMM (1.8-8.9); NEUTROPHILS % (AUTO) 44.7 % (43.0-81.0); PLATELET COUNT (AUTO) 192 /CMM (150-450); RDW COEFFICIENT OF VARIATION 14.4 (11.5-15.0); RED BLOOD CELL COUNT(AUTO) 4.83 MIL/uL (4.0-5.2); WHITE BLOOD COUNT (AUTO) 5.6 K/uL (4.3-11.0)
[2016-07-03 13:52] LABS: POTASSIUM 3.5 mmol/L (3.5-5.1)
[2016-07-03 13:58] LABS: ALBUMIN 3.3 g/dL (3.4-5.0); BILIRUBIN,TOTAL 0.6 mg/dL (0.2-1.0); TOTAL PROTEIN, SERUM 6.4 g/dL (6.4-8.2)
[2016-07-03 16:00] VITALS: BP 143/95
[2016-07-03] MEDS ORDERED: BENZTROPINE MESYLATE (1 MG) 1 MG TABLET PO PRN (16:30)
[2016-07-03] MEDS: risperiDONE-M 0.5 MG TAB.RAPDIS PO SCH (16:55)
[2016-07-03] MEDS: DIVALPROEX SODIUM 125 MG CAP.SPRINK PO SCH (16:56)
[2016-07-03] MEDS: BENZTROPINE MESYLATE (1 MG) 1 MG TABLET PO SCH (16:56)
[2016-07-03 20:00] VITALS: BP 130/75
[2016-07-03] MEDS ORDERED: OLANZAPINE 2.5 MG TABLET PO SCH (22:00)
[2016-07-03] MEDS: MIRTAZAPINE 15 MG TABLET PO SCH (22:04)
[2016-07-03] MEDS: TEMAZEPAM 7.5 MG CAPSULE PO PRN (22:04)
[2016-07-04 08:00] VITALS: BP 130/79
[2016-07-04] MEDS: risperiDONE-M 0.5 MG TAB.RAPDIS PO SCH (08:28)
[2016-07-04] MEDS: ASPIRIN 81 MG TAB.CHEW PO SCH (08:28)
[2016-07-04] MEDS: DOCUSATE SODIUM 100 MG CAPSULE PO SCH (08:29)
[2016-07-04] MEDS: DIVALPROEX SODIUM 125 MG CAP.SPRINK PO SCH ×4 (08:29→17:23)
[2016-07-04] MEDS: BENZTROPINE MESYLATE (1 MG) 1 MG TABLET PO SCH ×3 (08:29→17:23)
[2016-07-04] MEDS: PROPRANOLOL LA 60 MG CAP.SA.24H PO SCH (08:33)
[2016-07-04] MEDS: Z GUARD REMEDY 2 OZ OINT TP SCH ×2 (09:48→21:19)
--- NOTE | 2016-07-04 10:00 | NUR ---
BIJAN faxed a referral to [facility] [address] [place] [address] . Will follow up
[2016-07-04] MEDS: risperiDONE-M 0.5 MG TAB.RAPDIS PO PRN (11:54)
--- NOTE | 2016-07-04 11:54 | NUR ---
RN-CO: Risperdal 0.5 mg PO given for screaming and yelling.
--- NOTE | 2016-07-04 15:11 | NUR ---
BIJAN spoke with Altaf from [facility] [phone] and he does not know what can be done at this point with the patient's behavior. He has no placement available that would accept pt. with current behavior issues. BIJAN will follow up with
[2016-07-04 16:00] VITALS: BP 122/67
--- NOTE | 2016-07-04 18:14 | NUR ---
Pt. is tearful, anxious, refused to eat dinner and spitting the due meds. Will continue to monitor for safety.
[2016-07-04 20:00] VITALS: BP 102/56
[2016-07-04] MEDS: MIRTAZAPINE 15 MG TABLET PO SCH (22:15)
[2016-07-04] MEDS: TEMAZEPAM 7.5 MG CAPSULE PO PRN (22:16)
[2016-07-05] MEDS: BENZTROPINE MESYLATE (1 MG) 1 MG TABLET PO SCH ×2 (08:25→16:39)
[2016-07-05] MEDS: ASPIRIN 81 MG TAB.CHEW PO SCH (08:26)
[2016-07-05] MEDS: PROPRANOLOL LA 60 MG CAP.SA.24H PO SCH (08:26)
[2016-07-05] MEDS: risperiDONE-M 0.5 MG TAB.RAPDIS PO SCH ×3 (08:26→16:40)
[2016-07-05] MEDS: DOCUSATE SODIUM 100 MG CAPSULE PO SCH (08:26)
[2016-07-05] MEDS: DIVALPROEX SODIUM 125 MG CAP.SPRINK PO SCH ×3 (08:26→16:39)
[2016-07-05] MEDS: Z GUARD REMEDY 2 OZ OINT TP SCH ×2 (08:27→21:31)
[2016-07-05 09:30] LABS: BASOPHILS % (AUTO) 0.4 % (0.0-2.0); EOSINOPHILS # (AUTO) 0.8 /CMM (0.0-0.7); HEMATOCRIT 41 % (33-45); HEMOGLOBIN 13.5 g/dL (11.5-14.8); LYMPHOCYTES # (AUTO) 2.1 /CMM (0.8-4.8); LYMPHOCYTES % (AUTO) 39.3 % (20.0-44.0); MEAN CORPUSCULAR HEMOGLOBIN 28 PG (26.0-33.0); MEAN CORPUSCULAR HGB CONC 33 g/dl (31.0-36.0); MEAN CORPUSCULAR VOLUME 86 fL (82-100); MONOCYTES # (AUTO) 0.4 /CMM (0.1-1.30); MONOCYTES % (AUTO) 7.4 % (2.0-12.0); NEUTROPHILS % (AUTO) 36.9 % (43.0-81.0); PLATELET COUNT (AUTO) 191 /CMM (150-450); RDW COEFFICIENT OF VARIATION 14.5 (11.5-15.0); RED BLOOD CELL COUNT(AUTO) 4.76 MIL/uL (4.0-5.2); WHITE BLOOD COUNT (AUTO) 5.3 K/uL (4.3-11.0)
[2016-07-05 09:45] LABS: BILIRUBIN,TOTAL 0.5 mg/dL (0.2-1.0); CALCIUM, SERUM 8.7 mg/dL (8.5-10.1); POTASSIUM 3.3 mmol/L (3.5-5.1)
[2016-07-05 16:00] VITALS: BP 118/50
--- NOTE | 2016-07-05 19:55 | NUR ---
GPS/EXHIBITIONS CURATOR; RECEIVED PT IN BED SLEEPING. BREATHING NON LABORED AND EVEN. SITTER PRESENT IN THE ROOM. BED ON LOWER POSITION AND LOCKED FOR SAFETY. SIDE RAILS ARE UP FOR SAFETY. WILL CONTINUE TO MONITOR.
[2016-07-05 20:00] VITALS: BP 112/55
[2016-07-05] MEDS: MIRTAZAPINE 15 MG TABLET PO SCH (22:27)
--- NOTE | 2016-07-06 03:45 | NUR ---
GPS/SAP BODS DEVELOPER; NOTED PT AWAKE, SCREAMING , CRYING AND SAYING BROTHER HELP ME. PT IS INCONTINENT OF URINE YELLOW COLOR. CHAUNCEY -ANAL CARE RENDERED. DIAPER CHANGED. TURNED AND REPOSITIONED TO LT SIDE WITH PILLOW SUPPORT TO HER BACK. CONTINUE TO MONITOR. SITTER PRESENT AT ALL TIMES IN THE ROOM.
--- NOTE | 2016-07-06 06:36 | NUR ---
GPS/BULK PICKER; SLEPT FOR FOR SIX HOURS LAST NIGHT. OCC. SCREAMED AND CRIED. CONFUSED AND EASILY AGITATED WHEN TOUCHED. KEPT CLEAN AND DRY AND REPOSITIONED.SITTER PRESENT AT ALL TIMES IN THE ROOM. WILL ENDORSE TO THE DAY SHIFT NURSE.
[2016-07-06] MEDS: ASPIRIN 81 MG TAB.CHEW PO SCH ×2 (07:50→09:00)
[2016-07-06] MEDS: LORAZEPAM 0.5 MG TABLET PO PRN (07:50)
[2016-07-06] MEDS: PROPRANOLOL LA 60 MG CAP.SA.24H PO SCH ×2 (07:50→09:00)
[2016-07-06] MEDS: DOCUSATE SODIUM 100 MG CAPSULE PO SCH ×2 (07:50→09:00)
[2016-07-06] MEDS: risperiDONE-M 0.5 MG TAB.RAPDIS PO SCH ×4 (07:51→18:09)
[2016-07-06] MEDS: BENZTROPINE MESYLATE (1 MG) 1 MG TABLET PO SCH ×3 (07:51→18:10)
[2016-07-06] MEDS: DIVALPROEX SODIUM 125 MG CAP.SPRINK PO SCH ×4 (07:51→18:09)
[2016-07-06] MEDS: Z GUARD REMEDY 2 OZ OINT TP SCH ×2 (07:52→21:47)
--- NOTE | 2016-07-06 07:53 | NUR ---
ADMINISTERED ATIVAN 0.5 MG PO PRN FOR ANXIETY, IRRITABLE, PARANOIA, V/S TAKEN BP-139/98, P-91, CONTINUED MONITORING.
[2016-07-06 08:00] VITALS: BP 139/98
[2016-07-06] MEDS: risperiDONE-M 0.5 MG TAB.RAPDIS PO PRN (08:30)
--- NOTE | 2016-07-06 08:30 | NUR ---
administered risperdal -m 0.5 mg po prn for yelling screaming, paranoia, v/s stable continued monitoring.
[2016-07-06] MEDS ORDERED: Potassium Chloride 40 MEQ in IV D5/0.45 NACL 1,000 ML IV ONE (13:00)
[2016-07-06] MEDS ORDERED: IV SET PRIMARY PUMP SET 1 EA INFUS.SET MC ONE (14:58)
[2016-07-06 16:00] VITALS: BP 112/60
--- NOTE | 2016-07-06 17:18 | NUR ---
GPS/RN HEPLOCK INFILTRATED AND REMOVED. UNABLE TO START H/L PT IS HARD TO STICK. 3 ATTEMPTS WERE MADE. JEWEL HOLE ROUGH OPENER SMITH EPPERSON MADE AWARE AND SHE WILL SENT THE NURSE TO START THE IV.
--- NOTE | 2016-07-06 18:20 | NUR ---
GPS/RN H/L ESTABLISHED BY ER TEAM. IVF RESTARTED
[2016-07-06 20:06] VITALS: BP 114/62
--- NOTE | 2016-07-07 00:13 | NUR ---
Pt has been confused, fragmented, anxious, & with blunted affect.
[2016-07-07 08:00] VITALS: BP 145/79
[2016-07-07] MEDS: PROPRANOLOL LA 60 MG CAP.SA.24H PO SCH (09:00)
[2016-07-07] MEDS: DIVALPROEX SODIUM 125 MG CAP.SPRINK PO SCH ×3 (09:00→17:29)
[2016-07-07] MEDS: BENZTROPINE MESYLATE (1 MG) 1 MG TABLET PO SCH ×2 (09:00→17:30)
[2016-07-07] MEDS: risperiDONE-M 0.5 MG TAB.RAPDIS PO SCH ×3 (09:00→17:29)
[2016-07-07] MEDS: ASPIRIN 81 MG TAB.CHEW PO SCH (09:00)
[2016-07-07] MEDS: DOCUSATE SODIUM 100 MG CAPSULE PO SCH (09:00)
--- NOTE | 2016-07-07 09:00 | NUR ---
GPS/RN PATIENT REFUSING BREAKFAST, EXPLAINED RISKS AND BENEFITS HOWEVER, PATIENT IS CONFUSED, CONTINUES TO REFUSE. ENCOURAGING FLUIDS, PATIENT IS ALERT X 1, STABLE CONDITION, BREATHING EVEN AND UNLABORED, WILL CONTINUE TO MONITOR.
[2016-07-07 09:08] LABS: CALCIUM, SERUM 8.8 mg/dL (8.5-10.1); CREATININE 0.9 mg/dL (0.6-1.3); PHOSPHORUS 2.7 mg/dL (2.5-4.9); POTASSIUM 3.9 mmol/L (3.5-5.1)
--- NOTE | 2016-07-07 09:56 | NUR ---
GPS/RN PATIENT ADAMANTLY REFUSED A.M. MEDICATION X 3, EXPLAINED RISKS AND BENEFITS HOWEVER, PATIENT IS CONFUSED AND CONTINUES TO REFUSE. WILL CONTINUE TO ENCOURAGE PATIENT TO COMPLY WITH MD REGIMEN.
[2016-07-07] MEDS: Z GUARD REMEDY 2 OZ OINT TP SCH ×2 (10:38→20:53)
--- NOTE | 2016-07-07 11:47 | NUR ---
BIJAN spoke with pt's son, Ash Dao [phone] about pt's placement options. BIJAN provided him some information about possible issues and had discussion about possible hospice care. BIJAN provided Dasia from [facility] [phone] the phone number of pt's son, so they can discuss whether pt. is qualified for that level of care, as patient needs lots of care and at this time she is not appropriate for a board and care . Ash agreed to speak with Dasia. BIJAN faxed a referral to Dasia to [phone]. She will come assess the patient today.
[2016-07-07 15:56] VITALS: BP 120/73
[2016-07-07 15:58] VITALS: BP 138/70
[2016-07-07 19:42] VITALS: BP_SYST 134; BP_DIAS 62; BP_DIAS 77
[2016-07-07] MEDS: TEMAZEPAM 7.5 MG CAPSULE PO SCH (20:52)
[2016-07-08] MEDS: BENZTROPINE MESYLATE (1 MG) 1 MG TABLET PO SCH ×2 (08:25→18:38)
[2016-07-08] MEDS: DIVALPROEX SODIUM 125 MG CAP.SPRINK PO SCH ×3 (08:25→17:00)
[2016-07-08] MEDS: ASPIRIN 81 MG TAB.CHEW PO SCH (08:26)
[2016-07-08] MEDS: PROPRANOLOL LA 60 MG CAP.SA.24H PO SCH (08:26)
[2016-07-08] MEDS: risperiDONE-M 0.5 MG TAB.RAPDIS PO SCH ×3 (08:27→18:13)
[2016-07-08] MEDS: DOCUSATE SODIUM 100 MG CAPSULE PO SCH (08:27)
[2016-07-08] MEDS: Z GUARD REMEDY 2 OZ OINT TP SCH ×2 (08:28→20:49)
[2016-07-08 08:57] VITALS: BP 137/52
--- NOTE | 2016-07-08 10:03 | NUR ---
UR update: SW received a voicemail from Erika Bairon [facility] [phone] authorizing the patient until July 10, 2016. Auth # [id number].
[2016-07-08 16:10] VITALS: BP 109/60
[2016-07-08] MEDS: BOOST FOOD- BERRY 237 ML BOX PO SCH (17:00)
[2016-07-08] MEDS: risperiDONE-M 0.5 MG TAB.RAPDIS PO PRN (18:11)
[2016-07-08] MEDS: NYSTATIN TOP POWDER 15 GM BOTTLE TP SCH (18:35)
--- NOTE | 2016-07-08 19:27 | NUR ---
GPS RN NOTES RECEIVED IN THE DINING ROOM,APPEARS ISOLATED BUT ABLE TO ANSWER SIMPLE QUESTION.NEEDS TO ENCOURAGE MORE COMMUNICATION.WITH MULTIPLE SKIN DISCOLORATION.WILL CONTINUE TO MONITOR BEHAVIOR.
--- NOTE | 2016-07-08 19:30 | NUR ---
GPS RN NOTES NOTED SALINE LOCK ON LEFT FOOT,INTACT AND PATENT.
[2016-07-08 20:00] VITALS: BP 120/60
--- NOTE | 2016-07-08 20:00 | NUR ---
GPS RN NOTES MED COMPLIANT,WENT TO BED EARLY.
[2016-07-08] MEDS: TEMAZEPAM 7.5 MG CAPSULE PO SCH (20:08)
[2016-07-08 20:11] VITALS: BP 120/60
[2016-07-09 08:36] VITALS: BP 139/67
[2016-07-09] MEDS: ASPIRIN 81 MG TAB.CHEW PO SCH (09:25)
[2016-07-09] MEDS: BENZTROPINE MESYLATE (1 MG) 1 MG TABLET PO SCH ×2 (09:26→16:44)
[2016-07-09] MEDS: PROPRANOLOL LA 60 MG CAP.SA.24H PO SCH (09:26)
[2016-07-09] MEDS: DOCUSATE SODIUM 100 MG CAPSULE PO SCH (09:26)
[2016-07-09] MEDS: risperiDONE-M 0.5 MG TAB.RAPDIS PO SCH ×3 (09:26→16:44)
[2016-07-09] MEDS: DIVALPROEX SODIUM 125 MG CAP.SPRINK PO SCH ×3 (09:27→16:44)
[2016-07-09] MEDS: BOOST FOOD- BERRY 237 ML BOX PO SCH ×2 (09:28→16:46)
[2016-07-09] MEDS: Z GUARD REMEDY 2 OZ OINT TP SCH ×2 (09:30→21:07)
[2016-07-09] MEDS: NYSTATIN TOP POWDER 15 GM BOTTLE TP SCH ×2 (09:30→16:49)
[2016-07-09 09:38] LABS: BASOPHILS % (AUTO) 0.6 % (0.0-2.0); EOSINOPHILS # (AUTO) 0.3 /CMM (0.0-0.7); EOSINOPHILS % (AUTO) 4.5 % (0.0-6.0); HEMATOCRIT 41 % (33-45); HEMOGLOBIN 13.7 g/dL (11.5-14.8); LYMPHOCYTES # (AUTO) 2.1 /CMM (0.8-4.8); MEAN CORPUSCULAR HEMOGLOBIN 29 PG (26.0-33.0); MEAN CORPUSCULAR HGB CONC 34 g/dl (31.0-36.0); MEAN CORPUSCULAR VOLUME 86 fL (82-100); MONOCYTES # (AUTO) 0.5 /CMM (0.1-1.30); MONOCYTES % (AUTO) 7.5 % (2.0-12.0); NEUTROPHILS # (AUTO) 3.2 /CMM (1.8-8.9); NEUTROPHILS % (AUTO) 52.4 % (43.0-81.0); PLATELET COUNT (AUTO) 168 /CMM (150-450); RDW COEFFICIENT OF VARIATION 14.6 (11.5-15.0); RED BLOOD CELL COUNT(AUTO) 4.76 MIL/uL (4.0-5.2); WHITE BLOOD COUNT (AUTO) 6.1 K/uL (4.3-11.0)
--- NOTE | 2016-07-09 09:40 | NUR ---
BIJAN contacted Dasia ([facility]) [phone] and she said she has a board and care willing to accept the patient. She was notified that pt. needs to discharge Thursday.
[2016-07-09 09:50] LABS: CALCIUM, SERUM 8.7 mg/dL (8.5-10.1); CREATININE 0.9 mg/dL (0.6-1.3); MAGNESIUM 1.7 mg/dL (1.8-2.4); PHOSPHORUS 3.7 mg/dL (2.5-4.9); POTASSIUM 3.8 mmol/L (3.5-5.1)
--- NOTE | 2016-07-09 10:41 | NUR ---
BIJAN spoke with Ash Dao [phone] regarding a meeting that should have happened yesterday, but Ash said he never got a call from [facility]. [facility] ([facility] [phone] was contacted again and was provided with Ash's phone number to call and arrange for discharge. Dasia has an accepting facility but Ash stated that he wants to see the place first. BIJAN will follow up.
--- NOTE | 2016-07-09 11:29 | NUR ---
WOUND CARE CONSULT: PT PRESENTS WITH PINK RAISED BUMP TO RT LOWER LEG. NO DRAINAGE NOTED. BUMP IS SOFT TO TOUCH. RECOMMEND SURGICAL CONSULT. RED RASH UNDER RT BREAST TREATED WITH NYSTATIN POWDER. ALL SKIN PROTECTION MEASURES IN PLACE AND DISCUSSED WITH NURSING STAFF. IN AGREEMENT WITH PLAN OF CARE. Addendum: 07/09/16 at 1131 by JOSH RGEEN WNDNU Amended: Links added.
--- NOTE | 2016-07-09 14:37 | NUR ---
BIJAN spoke with Altaf from [facility] [phone] and he notified that the pt's son is going to see a facility that most likely will be able to accept the patient. Per Altaf, everything will be set up and pt. can discharge Thursday. Altaf will provide the information of the facility tomorrow.
[2016-07-09 16:02] VITALS: BP 120/51
[2016-07-09] MEDS ORDERED: MAGNESIUM OXIDE 400 MG TABLET PO ONE (17:30)
--- NOTE | 2016-07-09 19:20 | NUR ---
GPS RN NOTES ON BED SOUND ASLEEP,EASILY AROUSABLE TO VERBAL STIMULI,SKIN WARM AND DRY TO TOUCH,WITH MULTIPLE SKIN DISCOLORATION NOTED.SALINE LOCK LEFT FOOT INTACT AND PATENT.FALL PRECAUTION OBSERVED.WILL CONTINUE TO MONITOR BEHAVIOR.
[2016-07-09 20:00] VITALS: BP 128/52
[2016-07-09] MEDS: TEMAZEPAM 7.5 MG CAPSULE PO SCH (20:00)
--- NOTE | 2016-07-09 20:00 | NUR ---
GPS RN NOTES STILL SLEEPING,RESTORIL HELD.
[2016-07-09 20:34] VITALS: BP 128/52
[2016-07-10 08:00] VITALS: BP 138/88
[2016-07-10] MEDS: BOOST FOOD- BERRY 237 ML BOX PO SCH ×2 (08:00→17:38)
[2016-07-10] MEDS: DIVALPROEX SODIUM 125 MG CAP.SPRINK PO SCH ×3 (08:57→17:00)
[2016-07-10] MEDS: ASPIRIN 81 MG TAB.CHEW PO SCH (08:57)
[2016-07-10] MEDS: BENZTROPINE MESYLATE (1 MG) 1 MG TABLET PO SCH ×2 (08:57→17:00)
[2016-07-10] MEDS: DOCUSATE SODIUM 100 MG CAPSULE PO SCH (08:57)
[2016-07-10] MEDS: Z GUARD REMEDY 2 OZ OINT TP SCH ×2 (08:58→21:12)
[2016-07-10] MEDS: NYSTATIN TOP POWDER 15 GM BOTTLE TP SCH ×2 (08:58→17:38)
[2016-07-10] MEDS: risperiDONE-M 0.5 MG TAB.RAPDIS PO SCH ×3 (08:58→17:00)
[2016-07-10] MEDS: PROPRANOLOL LA 60 MG CAP.SA.24H PO SCH (08:58)
[2016-07-10 16:02] VITALS: BP 129/72
[2016-07-10 20:00] VITALS: BP 131/58
[2016-07-10] MEDS: TEMAZEPAM 7.5 MG CAPSULE PO SCH (21:10)
[2016-07-11 06:35] LABS: BASOPHILS % (AUTO) 0.4 % (0.0-2.0); EOSINOPHILS # (AUTO) 0.1 /CMM (0.0-0.7); EOSINOPHILS % (AUTO) 1.3 % (0.0-6.0); HEMATOCRIT 43 % (33-45); HEMOGLOBIN 14.4 g/dL (11.5-14.8); LYMPHOCYTES # (AUTO) 1.7 /CMM (0.8-4.8); LYMPHOCYTES % (AUTO) 25.4 % (20.0-44.0); MEAN CORPUSCULAR HEMOGLOBIN 29 PG (26.0-33.0); MEAN CORPUSCULAR HGB CONC 33 g/dl (31.0-36.0); MEAN CORPUSCULAR VOLUME 86 fL (82-100); MONOCYTES # (AUTO) 0.4 /CMM (0.1-1.30); MONOCYTES % (AUTO) 6.3 % (2.0-12.0); NEUTROPHILS # (AUTO) 4.5 /CMM (1.8-8.9); NEUTROPHILS % (AUTO) 66.6 % (43.0-81.0); PLATELET COUNT (AUTO) 182 /CMM (150-450); RDW COEFFICIENT OF VARIATION 14.8 (11.5-15.0); RED BLOOD CELL COUNT(AUTO) 5.05 MIL/uL (4.0-5.2); WHITE BLOOD COUNT (AUTO) 6.8 K/uL (4.3-11.0)
[2016-07-11 06:45] LABS: CALCIUM, SERUM 9.2 mg/dL (8.5-10.1); CREATININE 0.8 mg/dL (0.6-1.3); MAGNESIUM 1.9 mg/dL (1.8-2.4); PHOSPHORUS 3.4 mg/dL (2.5-4.9); POTASSIUM 3.8 mmol/L (3.5-5.1)
[2016-07-11 08:00] VITALS: BP 150/58
[2016-07-11] MEDS: BOOST FOOD- BERRY 237 ML BOX PO SCH (08:00)
[2016-07-11 09:00] VITALS: BP 150/58
[2016-07-11] MEDS: risperiDONE-M 0.5 MG TAB.RAPDIS PO SCH ×2 (09:00→13:00)
[2016-07-11] MEDS: NYSTATIN TOP POWDER 15 GM BOTTLE TP SCH (09:00)
[2016-07-11] MEDS: DOCUSATE SODIUM 100 MG CAPSULE PO SCH (09:00)
[2016-07-11] MEDS: Z GUARD REMEDY 2 OZ OINT TP SCH (09:00)
[2016-07-11] MEDS: ASPIRIN 81 MG TAB.CHEW PO SCH (09:00)
[2016-07-11] MEDS: DIVALPROEX SODIUM 125 MG CAP.SPRINK PO SCH ×2 (09:00→13:00)
[2016-07-11] MEDS: BENZTROPINE MESYLATE (1 MG) 1 MG TABLET PO SCH (09:00)
[2016-07-11] MEDS: PROPRANOLOL LA 60 MG CAP.SA.24H PO SCH (09:00)
--- NOTE | 2016-07-11 12:20 | NUR ---
GPS WATER AND FIRE TECHNICIAN NOTES: PATIENT DISCHARGED TO [facility] [[address] [place], [place], ]. PATIENT CONDITION IS STABLE FOR DISCHARGE, VS STABLE, NO VERBALIZATIONS OF SI/HI. ALL BELONGINGS RETURNED TO THE PATIENT. CALLED IN [facility] FOR PATIENT'S MEDICATIONS, SPOKE WITH PHARMACIST CABRERA [NUMBER PROVIDED BY BREEZY FROM [facility]]. THE PHARMACY WILL DELIVER PATIENT'S MEDICATIONS TO THE [facility]. DHIRAJ, DAUGHTER IN LAW IS PRESENT DURING PATIENT ADHESIVE BANDAGE MACHINE OPERATOR BY THE AMBULANCE. PROVIDED WITH EDUCATIONAL EXIT CARE AND THE COPY OF THE CURRENT MED LIST. PATIENT LEFT THE UNIT ON A GURNEY ACCOMPANIED BY TWO ELEVATOR WORKER [facility]IA [facility].
--- NOTE | 2016-07-11 13:55 | NUR ---
Discharge note: Pt. was discharged to [facility] [address] [place] [address] with [facility] hospice [phone]. Pt's pharmacy is [facility] [phone]. Altaf from [facility] [phone] has been working with the Independent Living Instructor and arranged the placement with Ash Dao(son)[phone]. SW spoke with pt's son, and he agreed with the plan. All involved parties agreed with the discharge plan. Pt. will follow up with Dr. Bell [phone]. Discharge paperwork has been signed, and discharge instructions were provided to the transportation team.
--- NOTE | 2016-07-11 14:05 | NUR ---
UR update: BIJAN faxed discharge information to [facility] [phone] Auth # [id number].
== END 2016-07-11 12:20 | disposition home or self-care (01) | DRG 885 ==
LOC: ER 17:39 → GPS 20:42
PROVIDERS: ADMIT Psychiatry & Neurology Psychiatry; ATTEND Nurse Practitioner Acute Care
DX: F33.2 Major depressive disorder, recurrent severe without psychotic features (principal); E87.0 Hyperosmolality and hypernatremia; E86.0 Dehydration; F03.90 Unspecified dementia, unspecified severity, without behavioral disturbance, psychotic disturbance, mood disturbance, and anxiety; I10 Essential (primary) hypertension; J44.9 Chronic obstructive pulmonary disease, unspecified; I25.10 Atherosclerotic heart disease of native coronary artery without angina pectoris; Z91.19 Patient's noncompliance with other medical treatment and regimen
CPT/HCPCS: 36415; 80048-TC; 80053-TC; 80076-TC; 80164-TC; 80305; 81000-TC; 83735-TC; 84100-TC; 85025-TC; 87081-TC; A4606; G0480; G6039-TC; J3480; J3490; J7070; Z7610